=== PATIENT | male | born 1950 | race Caucasian/White ===

== ENCOUNTER 2019-02-23 20:31 | Inpatient (IN) | payer MEDICARE, BC ==
[~2019-02-23] VITALS: Ht 190.5 cm; Wt 96.6 kg
[~2019-02-23 20:31] MED LIST: ALEGRA; ALLEGRA ALLERG180 MG PO; ALPHAGAN P5 ML; ALPHAGAN P5 ML OU; ATROPINE PO; AZOPT10 ML OU; DIPHENOXYLATE PO; GAS-X125 MG; GAS-X125 MG PO; LASIX20 MG PO; LUMIGAN2.5 M1 OP; LUMIGAN2.5 M1 OU; MAALOX ADVANCE1 EACH; NEXIUM40 MG PO; Nystatin PO; PANTOPRAZOLE SO40 MG PO; PEPTO-BISMOL262 M1; PROCHLORPERAZIN10 MG PO; Potassium Chloride PO; SUCRALFATE1 GM PO; TYLENOL PO; TYLENOL325 MG PO; [UNRECOGNIZED DRUG - OTHER]
[2019-02-23] MEDS ORDERED: HEPARIN SOD (PORCINE) 5,000 UNIT/ML VIAL IV ONE (22:30)
[2019-02-23 22:45] LABS: BASOPHILS # (AUTO) 0.1 (0.0-0.1); BASOPHILS % 0.9 % (0.0-1.0); EOSINOPHILS # (AUTO) 0.1 (0.0-0.4); EOSINOPHILS % 1.9 % (0.0-6.0); HEMATOCRIT 50.2 % (38.2-49.6); HEMOGLOBIN 17.5 g/dL (14.0-18.0); LYMPHOCYTES # (AUTO) 1.4 (1.0-3.2); LYMPHOCYTES % 23.6 % (18.0-39.1); MEAN CORPUSCULAR HEMOGLOBIN 31.5 pg (28-32); MEAN CORPUSCULAR HGB CONC 34.9 g/dL (31-35); MEAN CORPUSCULAR VOLUME 90.5 fL (81-99); MONOCYTES # (AUTO) 0.7 (0.2-0.8); MONOCYTES % 11.9 % (4.4-11.3); NEUTROPHILS # (AUTO) 3.5 (2.1-6.9); NEUTROPHILS % 60.8 % (38.7-80.0); PLATELET COUNT 227 x10e3/uL (140-360); RED BLOOD COUNT 5.55 x10e6/uL (4.3-5.7); RED CELL DISTRIBUTION WIDTH 12.6 % (11.7-14.4)
[2019-02-23 22:51] LABS: INR 0.99; PARTIAL THROMBOPLASTIN TIME 27.4 seconds (23.8-35.5); PROTHROMBIN TIME 13.6 seconds (11.9-14.5)
[2019-02-23 22:58] LABS: ALANINE AMINOTRANSFERASE 28 IU/L (0-55); ALBUMIN/GLOBULIN RATIO 1.1 (0.8-2.0); ALKALINE PHOSPHATASE 41 IU/L (40-150); ANION GAP 15.4 mmol/L (8-16); BLOOD UREA NITROGEN 10 mg/dL (7-26); BUN/CREATININE RATIO 9 (6-25); CALCIUM 9.9 mg/dL (8.4-10.2); CARBON DIOXIDE 24 mmol/L (22-29); CHLORIDE 99 mmol/L (98-107); CREATININE, SERUM 1.08 mg/dL (0.72-1.25); EST GLOMERULAR FILTRATION RATE > 60 ML/MIN (60-); GLUCOSE 132 mg/dL (74-118); POTASSIUM 3.4 mmol/L (3.5-5.1); SODIUM 135 mmol/L (136-145)
[2019-02-23] MEDS: [UNRECOGNIZED DRUG - OTHER] IV SCH (23:10)
[2019-02-23] MEDS: HEPARIN IV SCH (23:10)
[2019-02-23] MEDS ORDERED: HEPARIN 25,000U/0.45% NS 250ML 250 ML IV ONE (23:11)
[2019-02-24] VITALS (9 sets, daily range): BP systolic 103–135; BP diastolic 66–79
[2019-02-24] MEDS ORDERED: ONDANSETRON HCL INJ 2MG/ML 2ML 2 MG/ML VIAL IV PRN (00:15)
[2019-02-24] MEDS ORDERED: SODIUM CHLORIDE FLUSH 10 ML SYR INJ PRN (00:15)
[2019-02-24] MEDS ORDERED: HYDROCODONE/APAP 5MG-325MG TAB PO PRN (00:45)
[2019-02-24] MEDS ORDERED: MILK OF MA2400 MG/10 PO (00:48)
[2019-02-24] MEDS ORDERED: IMODIUM2 MG PO (00:48)
[2019-02-24] MEDS ORDERED: ZOFRAN4 MG PO (00:48)
[2019-02-24] MEDS ORDERED: DICYCLOMINE HCL10 MG PO (00:49)
[2019-02-24] MEDS ORDERED: AZELASTINE137 MCG/0. INH (00:50)
[2019-02-24 06:31] LABS: BASOPHILS # (AUTO) 0.1 (0.0-0.1); BASOPHILS % 0.9 % (0.0-1.0); EOSINOPHILS # (AUTO) 0.1 (0.0-0.4); HEMATOCRIT 46.5 % (38.2-49.6); HEMOGLOBIN 15.8 g/dL (14.0-18.0); LYMPHOCYTES # (AUTO) 1.8 (1.0-3.2); LYMPHOCYTES % 30.7 % (18.0-39.1); MEAN CORPUSCULAR HEMOGLOBIN 30.8 pg (28-32); MEAN CORPUSCULAR VOLUME 90.6 fL (81-99); MONOCYTES # (AUTO) 0.7 (0.2-0.8); MONOCYTES % 11.8 % (4.4-11.3); NEUTROPHILS # (AUTO) 3.2 (2.1-6.9); NEUTROPHILS % 53.9 % (38.7-80.0); PLATELET COUNT 212 x10e3/uL (140-360); RED BLOOD COUNT 5.13 x10e6/uL (4.3-5.7); RED CELL DISTRIBUTION WIDTH 12.7 % (11.7-14.4)
[2019-02-24] MEDS ORDERED: DIATRIZOATE MEGL/DIATRIZOA SOD 30 ML BTL PO ONE (06:59)
[2019-02-24 07:19] LABS: ALANINE AMINOTRANSFERASE 26 IU/L (0-55); ALBUMIN 3.8 g/dL (3.5-5.0); ALBUMIN/GLOBULIN RATIO 1.2 (0.8-2.0); ALKALINE PHOSPHATASE 38 IU/L (40-150); ANION GAP 13.4 mmol/L (8-16); BLOOD UREA NITROGEN 9 mg/dL (7-26); BUN/CREATININE RATIO 9 (6-25); CALCIUM 9.3 mg/dL (8.4-10.2); CARBON DIOXIDE 22 mmol/L (22-29); CHLORIDE 99 mmol/L (98-107); CREATININE, SERUM 0.99 mg/dL (0.72-1.25); EST GLOMERULAR FILTRATION RATE > 60 ML/MIN (60-); GLUCOSE 123 mg/dL (74-118); POTASSIUM 3.4 mmol/L (3.5-5.1); SODIUM 131 mmol/L (136-145)
--- NOTE | 2019-02-24 07:37 | History and Physical ---
REASON FOR ADMISSION: The patient is a 69-year-old gentleman, who comes in with right lower extremity pain. HISTORY OF PRESENTING ILLNESS: Mr. Vipin Arreola with a history of colorectal cancer, recently had his 3rd set of chemo and the patient started to have diarrhea, which is intractable. Took some Imodium. The patient's diarrhea did get better. The patient did have some shortness of breath and abdominal pain. However, on the day of admission, the patient noticed that the right ankle and the right thigh was enlarged and increased redness and also swelling and also paresthesias noted. The patient came to the emergency room, was found to have an acute DVT and admitted for the pain. PAST MEDICAL HISTORY: History of hypertension, history of hyperlipidemia, history of colon cancer, history of glaucoma, and history of nasal allergies. PAST SURGICAL HISTORY: History of colon resection by Dr. Mcclure and also chemotherapy as noted above. MEDICATIONS: Azelastine, Lumigan, Alphagan, Azopt, dicyclomine, loperamide as needed, and Zofran 4 mg, and chemotherapy as by Dr. Vanessa. SOCIAL HISTORY: No EtOH. No IV drug abuse. No history of smoking either. FAMILY HISTORY: Positive for diabetes. Positive for hypertension. Positive for hyperlipidemia. ALLERGIES: NO DRUG ALLERGIES. REVIEW OF SYSTEMS: Negative for chest pain. No shortness of breath. No nausea, vomiting, or diarrhea. Positive for abdominal pain. Positive for constipation and diarrhea, the last episode. No diplopia. No blurry vision. PHYSICAL EXAMINATION: VITAL SIGNS: Temperature is 97.2, pulse of 80, respirations of 20, blood pressure is 120/74, and pulse oximetry of 97%. HEENT: Normocephalic, atraumatic. Pupils are reactive to light and accommodation. CVS: S1, S2 normal. Regular rate and rhythm. ABDOMEN: Tender in the right lower quadrant. LUNGS: Clear to auscultation. EXTREMITIES: Positive for increased girth in the thigh and also in the calf on the right lower extremities. LABORATORY DATA: White count 5.81, hemoglobin of 17.5, hematocrit 50.2, no left shift present. Coags; PT, PTT, lupus anticoagulant, and factor VII are pending. Chemistry shows sodium of 135, potassium 3.4, glucose 132, and albumin is normal. IMAGING STUDIES: Lower extremity ultrasound and venous Doppler shows acute DVT in the SFA, popliteal, and superficial veins on the right side. Lower extremity Dopplers were within normal limits. ASSESSMENT: 1. Acute deep vein thrombosis. The patient has been put on heparin protocol. 2. Abdominal pain. We will do a CT of the abdomen in lieu of his colon cancer. PLAN: To continue the patient on heparin base protocol. Continue monitoring his right lower extremity. We will also have Cardiology consult on board. Further recommendation and clinical course and also will depend on the CT scan of the abdomen and pelvis. Joby Carr MD ASJ/MODL /[id number]
--- NOTE | 2019-02-24 10:12 | Diagnostic Imaging Report ---
EXAMINATION: CT of the abdomen and pelvis with contrast. TECHNIQUE: Spiral CT images of the abdomen and pelvis were performed from the lung bases to the lesser trochanters after the intravenous administration of 100 cc Isovue-370. Coronal and sagittal reformatted images were obtained. COMPARISON: 01/09/2016 CLINICAL HISTORY:Abdominal pain, history of colorectal cancer, history of DVT DISCUSSION: ABDOMEN/PELVIS: LOWER THORAX:Filling defect in the right lower lobe pulmonary artery partially visualized (series 2 image 2). Additional filling defects in segmental branches of the left lower lobe pulmonary artery, also partially visualized (series 2 image 5). Subsegmental atelectasis in the dependent lower lobes. 5 mm juxtapleural right middle lobe nodule (series 2 image 11). HEPATOBILIARY: No focal hepatic lesions. No intra-or extrahepatic biliary ductal dilation. The gallbladder has been removed. Metallic clips in the gallbladder fossa. SPLEEN: No splenomegaly. PANCREAS: No focal masses or ductal dilatation. ADRENALS: No adrenal nodules. KIDNEYS/URETERS: No hydronephrosis, stones, or solid mass lesions. PELVIC ORGANS/BLADDER: The urinary bladder is unremarkable. Mild prostatomegaly with mass effect on the bladder base. PERITONEUM/RETROPERITONEUM: No free air or fluid. LYMPH NODES: 2.5 x 2.7 cm enlarged right pelvic sidewall/internal iliac chain lymph node seen on series 2 image 75, similar in size to that described on 01/09/2016. No retroperitoneal or mesenteric lymphadenopathy. VESSELS: Atherosclerotic calcification of the abdominal aorta without aneurysmal dilatation. Early origin of the right hepatic artery from the celiac axis with otherwise conventional hepatic arterial anatomy. 2 left and single right renal artery. Portal vein, splenic vein, and central superior mesenteric vein are patent. Increased caliber and adjacent fat stranding along the right common femoral and external iliac vein in keeping with previously diagnosed deep venous thrombosis. GI TRACT: Radiopaque suture material along the rectum. Descending and sigmoid colon are partially collapsed with mild wall thickening, mucosal enhancement and adjacent mesocolic inflammation. Ascending colon shows no distention or wall thickening. The appendix is not definitively identified. No small bowel dilatation to suggest obstruction. Stomach is collapsed with prominent rugal folds. BONES AND SOFT TISSUE: No osseous destructive lesions. No soft tissue abnormalities. IMPRESSION: Partially visualized bilateral lower lobe pulmonary emboli with findings of right common femoral and external iliac deep venous thrombosis. Per EMR patient is undergoing treatment with therapeutic systemic heparinization. Findings suggestive of infectious or inflammatory colitis involving the descending and sigmoid colon. No perforation or drainable fluid collection. Enlarged right pelvic sidewall lymph node is without significant interval change in size relative to 01/09/2016, though remains concerning for metastatic disease in this patient with known history of colorectal cancer. PET-CT may be of benefit to assess for metabolic activity/viability of this lymph node. 5 mm right middle lobe pulmonary nodule is indeterminate and should be followed closely on subsequent cross-sectional imaging examinations. Findings were discussed by telephone with the patient's nurse Ms. Chester at 10:05 AM 02/24/2019. Signed by: Dr. Maycol Valdez M.D. on 02/24/2019 10:09 AM
[2019-02-24] MEDS ORDERED: DICYCLOMINE HCL 10 MG CAP PO PRN (12:45)
[2019-02-24] MEDS ORDERED: NON-FORMULARY MEDICATION (Ondansetron Hcl* (Zofran*) 8 MG) PO PRN (12:45)
[2019-02-24] MEDS: LOPERAMIDE HCL 2 MG CAP PO PRN ×2 (13:10→21:17)
[2019-02-24] MEDS ORDERED: IOPAMIDOL 370 MG/ML 200 ML INFUS..BTL INJ ONE (15:00)
[2019-02-24] MEDS ORDERED: SODIUM CHLORIDE 0.9% 50ML 50 ML ONE (15:00)
[2019-02-24] MEDS: BRIMONIDINE TARTRATE 0.15% OPTH DRPS 10ML BTL OP SCH (16:59)
[2019-02-24] MEDS: BRINZOLAMIDE 1% OPTH SUSP 10 ML BTL OU SCH (16:59)
[2019-02-24] MEDS: HEPARIN IV SCH (18:17)
[2019-02-24] MEDS: [UNRECOGNIZED DRUG - OTHER] IV SCH (18:17)
--- NOTE | 2019-02-24 19:11 | Consultation ---
DATE OF CONSULTATION: Cardiology Consultation HISTORY OF PRESENT ILLNESS: This is a 69-year-old man with a history of colorectal cancer, currently undergoing chemotherapy, who presented to the emergency department with right lower extremity pain, swelling, redness, and paresthesias in addition to some shortness of breath and abdominal pain. The patient was noted to have extensive deep venous thrombosis. We were consulted. He has no history of thromboembolism in the past. PAST MEDICAL HISTORY: As stated above in the HPI. PAST SURGICAL HISTORY: Colon resection. FAMILY HISTORY: No premature coronary artery disease or sudden cardiac , no history of deep venous thrombosis. MEDICATIONS: See medications reconciliation form. ALLERGIES: NO KNOWN DRUG ALLERGIES. SOCIAL HISTORY: No illicit drug, alcohol, or tobacco use. OBJECTIVE: VITAL SIGNS: Temperature is 95.9, heart rate is 87, respirations are 22, blood pressure is 120/72, oxygen saturation 96% on room air. GENERAL: Well-appearing, well-built, no apparent distress. CARDIOVASCULAR: Regular rate and rhythm. LUNGS: Clear to auscultation. ABDOMEN: Soft, nontender, and nondistended. EXTREMITIES: He has right lower extremity erythema with swelling. VASCULAR: 2+ pulses. NEUROLOGIC: No focal deficits noted. LABORATORY DATA: Hemoglobin 15.8, platelets 212. INR 0.99. Creatinine 0.99. Right lower extremity venous Doppler showed extensive deep venous thrombosis in the common femoral, superficial femoral, popliteal, and posterior tibial vessels. CT of the abdomen and pelvis showed bilateral lower lobe pulmonary emboli with common femoral and external iliac deep venous thrombosis. IMPRESSION: 1. Pulmonary embolism. 2. Deep venous thrombosis. 3. Colon cancer. 4. Hypokalemia. 5. Hyponatremia. RECOMMENDATIONS: The patient would benefit from venography and possible thrombolysis and/or mechanical thrombectomy given the extensive thrombus burden. He also has evidence of pulmonary emboli. Continue heparin for anticoagulation for now. We will need to discuss with Oncology regarding anticoagulation on discharge. Given his history of colon cancer, Lovenox q.12 hours seems reasonable. We will continue to follow along with you. Kevin Orlando DO BM/MODL /[id number]
[2019-02-24] MEDS: BIMATOPROST(OPTH) 2.5 ML BOTTLE OP SCH (21:01)
[2019-02-25] VITALS (27 sets, daily range): BP systolic 96–171; BP diastolic 57–79
[2019-02-25 06:58] LABS: BASOPHILS % 0.8 % (0.0-1.0); EOSINOPHILS # (AUTO) 0.2 (0.0-0.4); EOSINOPHILS % 3.6 % (0.0-6.0); HEMATOCRIT 42.5 % (38.2-49.6); LYMPHOCYTES # (AUTO) 1.5 (1.0-3.2); MEAN CORPUSCULAR HEMOGLOBIN 31.8 pg (28-32); MEAN CORPUSCULAR HGB CONC 35.3 g/dL (31-35); MEAN CORPUSCULAR VOLUME 90.2 fL (81-99); MONOCYTES # (AUTO) 0.7 (0.2-0.8); MONOCYTES % 14.7 % (4.4-11.3); NEUTROPHILS # (AUTO) 2.5 (2.1-6.9); NEUTROPHILS % 49.3 % (38.7-80.0); PLATELET COUNT 187 x10e3/uL (140-360); RED BLOOD COUNT 4.71 x10e6/uL (4.3-5.7)
[2019-02-25 07:09] LABS: ANION GAP 10.4 mmol/L (8-16); BLOOD UREA NITROGEN 8 mg/dL (7-26); BUN/CREATININE RATIO 8 (6-25); CALCIUM 8.8 mg/dL (8.4-10.2); CARBON DIOXIDE 27 mmol/L (22-29); CHLORIDE 100 mmol/L (98-107); CREATININE, SERUM 0.95 mg/dL (0.72-1.25); EST GLOMERULAR FILTRATION RATE > 60 ML/MIN (60-); GLUCOSE 97 mg/dL (74-118); POTASSIUM 3.4 mmol/L (3.5-5.1); SODIUM 134 mmol/L (136-145)
[2019-02-25] MEDS: BRINZOLAMIDE 1% OPTH SUSP 10 ML BTL OU SCH ×2 (07:28→17:43)
[2019-02-25] MEDS: BRIMONIDINE TARTRATE 0.15% OPTH DRPS 10ML BTL OP SCH ×2 (07:28→17:43)
[2019-02-25] MEDS: ONDANSETRON HCL 4 MG ORAL DISINTEGRATING TAB PO PRN ×2 (08:05→08:06)
[2019-02-25] MEDS ORDERED: FENTANYL CITRATE/PF 100MCG/2 ML INJ ONE (09:00)
[2019-02-25] MEDS ORDERED: MIDAZOLAM HCL 2 MG/2 ML VIAL ONE ×2 (09:00→09:38)
[2019-02-25] MEDS ORDERED: HEPARIN SOD/SOD CHLORIDE 2,000 ML ONE (09:00)
[2019-02-25] MEDS ORDERED: LIDOCAINE HCL 2% LOCAL 20 ML VIAL ONE (09:00)
[2019-02-25] MEDS ORDERED: IOPAMIDOL 300MG/ML 100 ML INFUS..BTL IV ONE (09:01)
[2019-02-25] MEDS ORDERED: SODIUM CHLORIDE 0.9% 1000ML 1,000 ML ONE (09:01)
[2019-02-25] MEDS ORDERED: HEPARIN 25,000U/0.45% NS 250ML 250 ML IV ONE (09:49)
[2019-02-25] MEDS ORDERED: ALTEPLASE RECOMBINANT 2 MG/2 ML VIAL ONE (09:49)
[2019-02-25] MEDS ORDERED: ALTEPLASE 50 MG/VIAL (29 MILLION IU) IV ONE (10:00)
[2019-02-25] MEDS ORDERED: HEPARIN 25,000 UNIT 25,000 UNIT in DEXTROSE 5% 250ML 250 ML IV SCH (10:00)
--- NOTE | 2019-02-25 10:04 | Progress Note ---
DATE: SUBJECTIVE: The patient is here for an acute DVT of the right lower extremity. The patient's CT scan was done yesterday. The imaging CT showed partialized bilateral lower lobe pulmonary emboli with findings of right common femoral and external iliac deep vein thrombosis. Findings suggestive of infectious inflammatory colitis involving the descending and sigmoid colon. No perforation or drainable fluid located. A 5 mm right middle lobe pulmonary nodule. The patient is currently asymptomatic. No fever noticed. The patient's abdominal pain has decreased. OBJECTIVE: VITAL SIGNS: Temperature is 96.4, pulse of 74, respirations 16, blood pressure is 108/76, and pulse oximetry of 97%. HEENT: Normocephalic, atraumatic. Pupils reactive to light and accommodation. CVS: S1, S2 normal. Regular rate and rhythm. LUNGS: Decreased air entry. ABDOMEN: Nontender, nondistended. EXTREMITIES: Right lower extremity with swelling and erythema, which have decreased and positive for increased edema. LABORATORY VALUES: White count is 5.86, hemoglobin of 15.3, hematocrit of 46.5. Chemistries show sodium 131, potassium is 3.4, glucose is 123. Coags to be continued with heparin drip. ASSESSMENT: 1. Acute deep vein thrombosis, thrombus load is very large. The patient will need a thrombectomy and possible IVC filter. Dr. Kevin Orlando is going to do it today. 2. The patient also with CT showing colitis, probably inflammatory secondary to the fact that the CBC is normal, white count is normal. We will hold off on antibiotics at this time and patient's abdominal pain is much better. 3. History of colon cancer with metastasis, lung METs seen. The patient's oncologist, Dr. Vanessa is aware of this. 4. Will need warfarin started after thrombectomy and bridge to heparin to warfarin. White count will be done again today. The patient also has lupus anticoagulant and factor VII pending. Further recommendation per clinical course. We will continue to monitor the patient. The patient has been briefed about risks and benefits of thrombectomy and also IVC filter. MD THOMAS Aguirre/PLACIDOL /[id number]
[2019-02-25] MEDS ORDERED: [UNRECOGNIZED DRUG - OTHER] IV SCH (10:15)
[2019-02-25] MEDS ORDERED: HEPARIN IV SCH (10:15)
[2019-02-25] MEDS ORDERED: POTASSIUM CHLORIDE 20 MEQ TAB CR PO SCH (11:00)
--- NOTE | 2019-02-25 12:59 | Progress Note ---
DATE: Cardiology Progress Note SUBJECTIVE: The patient reports persistent right lower extremity swelling. OBJECTIVE: VITAL SIGNS: Temperature is 96.6, heart rate is 95, respirations 18, blood pressure is 131/79, ox saturation 98% on room air. GENERAL: He is well appearing, well built, no apparent distress. CARDIOVASCULAR: Regular rate and rhythm. LUNGS: Clear to auscultation. ABDOMEN: Soft, nontender, nondistended. EXTREMITIES: Right lower extremity swelling. NEUROLOGIC: No focal deficits noted. CARDIOVASCULAR MEDICATIONS: Reviewed. LABORATORY DATA: Reviewed. TELEMETRY: Monitoring revealed normal sinus rhythm with premature atrial complexes. IMPRESSION: 1. Deep venous thrombosis. 2. Pulmonary embolism. 3. Colon cancer. 4. Hypokalemia. RECOMMENDATIONS: The patient underwent IVC filter placement with venography showing extensive thrombus burden throughout the right lower extremity. A Mauro thrombolysis catheter was placed and we will infuse, also placed at 1 mg/hour overnight. He will be brought back to the cardiac catheterization laboratory for repeat angiography with possible further intervention. Kevin Orlando DO BM/MODL /[id number]
[2019-02-25] MEDS: ALTEPLASE RECOMBINANT 8 MG in DEXTROSE 5% 250ML 250 ML IV PRN (18:21)
--- NOTE | 2019-02-25 20:11 | Operative Report ---
DATE OF PROCEDURE: SURGEON: Kevin Orlando DO PROCEDURES PERFORMED: 1. Conscious sedation, 35 minutes. 2. Ultrasound-guided left femoral venous access. 3. Catheter placement in the inferior vena cava. 4. Inferior vena cava angiography. 5. Inferior vena caval filter placement. 6. Second order venography. 7. Unilateral venogram. 8. Transcatheter lysis, catheter placement with infusion of alteplase. PREPROCEDURE DIAGNOSIS: Deep venous thrombosis POSTPROCEDURE DIAGNOSIS: Deep venous thrombosis ESTIMATED BLOOD LOSS: Less than 20 mL. SPECIMENS REMOVED: None. PROCEDURE IN DETAIL: After informed consent was obtained, the patient was brought to the cardiac catheterization laboratory in a fasting and nonsedated state. Bilateral groins were prepped and draped in the usual sterile fashion. A 2% lidocaine was instilled over the left anterior groin for local anesthesia. Using ultrasound guidance, the left common femoral artery was accessed via a modified Seldinger technique and an 8.4-[place] IVC filter sheath was placed in the infrarenal position. Digital subtraction angiography was performed to delineate the renal veins. Next, an IVC filter was deployed in the usual manner. Next, this was exchanged out for a 9-[place] [employer] sheath. Next, using an IM catheter, the iliac veins were crossed up and over with placement of the [employer] wire into the distal popliteal vein. The catheter was tracked out distally and placed in second order position. Venography revealed significant thrombus burden throughout the left lower extremity extending into the iliac system. Next, I placed a 40 cm working Mauro catheter with infusion of alteplase. Everything was secured in place and the patient was transported back to the ICU in stable condition. Kevin Orlando DO BM/MODL /[id number]
[2019-02-25] MEDS: METRONIDAZOLE 500MG/NS 100ML 100 ML IV SCH (20:17)
[2019-02-25] MEDS: BIMATOPROST(OPTH) 2.5 ML BOTTLE OP SCH (21:50)
[2019-02-26] VITALS (26 sets, daily range): BP systolic 112–159; BP diastolic 68–113
[2019-02-26] MEDS ORDERED: DEXTROSE 5% 250ML 0 ML IV ONE (01:46)
[2019-02-26] MEDS ORDERED: ALTEPLASE RECOMBINANT 2 MG/2 ML VIAL ONE (01:47)
[2019-02-26] MEDS: ALTEPLASE RECOMBINANT 8 MG in DEXTROSE 5% 250ML 250 ML IV PRN (02:06)
[2019-02-26] MEDS: METRONIDAZOLE 500MG/NS 100ML 100 ML IV SCH ×3 (03:50→19:36)
[2019-02-26 05:16] LABS: BASOPHILS % 0.7 % (0.0-1.0); EOSINOPHILS # (AUTO) 0.1 (0.0-0.4); EOSINOPHILS % 1.8 % (0.0-6.0); HEMOGLOBIN 14.3 g/dL (14.0-18.0); LYMPHOCYTES # (AUTO) 1.4 (1.0-3.2); LYMPHOCYTES % 23.1 % (18.0-39.1); MEAN CORPUSCULAR HEMOGLOBIN 31.6 pg (28-32); MEAN CORPUSCULAR HGB CONC 34.9 g/dL (31-35); MEAN CORPUSCULAR VOLUME 90.7 fL (81-99); MONOCYTES # (AUTO) 0.9 (0.2-0.8); MONOCYTES % 15.2 % (4.4-11.3); NEUTROPHILS # (AUTO) 3.5 (2.1-6.9); NEUTROPHILS % 58.2 % (38.7-80.0); PLATELET COUNT 155 x10e3/uL (140-360); RED BLOOD COUNT 4.52 x10e6/uL (4.3-5.7)
[2019-02-26 05:37] LABS: ANION GAP 11.5 mmol/L (8-16); BLOOD UREA NITROGEN 8 mg/dL (7-26); BUN/CREATININE RATIO 10 (6-25); CALCIUM 8.3 mg/dL (8.4-10.2); CARBON DIOXIDE 22 mmol/L (22-29); CHLORIDE 104 mmol/L (98-107); CREATININE, SERUM 0.84 mg/dL (0.72-1.25); EST GLOMERULAR FILTRATION RATE > 60 ML/MIN (60-); GLUCOSE 103 mg/dL (74-118); POTASSIUM 3.5 mmol/L (3.5-5.1); SODIUM 134 mmol/L (136-145)
--- NOTE | 2019-02-26 06:53 | Progress Note ---
DATE: SUBJECTIVE: The patient is in ICU 193 and here for DVT, status post catheter insertion. The patient is currently complaining of back pain and lying on his back. The patient had a procedure yesterday, had a catheter placed in for tPA and heparin, currently being infused for thrombolysis. OBJECTIVE: VITAL SIGNS: Temperature is 97.3, pulse of 77, respirations of 18, blood pressure is 126/68, pulse oximetry of 99%. Seen by Dr. Mcclure yesterday and started on Flagyl for colitis. HEENT: Normocephalic, atraumatic. Pupils are reactive to light and accommodation. CVS: S1, S2 normal. Regular rate and rhythm. ABDOMEN: Nontender, nondistended. EXTREMITIES: Catheterization catheters in place and pulses are felt. Edema on the right side positive, but decreased in girth. LABORATORY VALUES: White count of 6.06, hemoglobin of 14.3, hematocrit is 41. Chemistries, sodium 134, potassium 3.5, BUN 8, creatinine 0.84. Coags within normal limits. Stool occult was positive. ASSESSMENT: Acute deep vein thrombosis. The patient was taken back yesterday for IV catheter infusion of tPA and heparin. Continues to do the same. IVC filter was placed yesterday. The patient's CT showed colitis, seen by Dr. Mcclure, started on Flagyl. History of colon cancer with metastasis. We will continue to monitor the patient and for history of pulmonary embolism, will need a dedicated CT of the lung. We will try to reduce the thrombus load and do the CT on a later date. Currently, continue with anticoagulation. The patient will be taken down back to the sleep lab technologist today for a 2nd procedure. Further recommendation per clinical course. The patient is very stable at this time, continued to monitor the patient in the ICU. MD NEVA AguirreJ/MODL /[id number]
[2019-02-26] MEDS: BRIMONIDINE TARTRATE 0.15% OPTH DRPS 10ML BTL OP SCH ×2 (08:46→17:14)
[2019-02-26] MEDS: BRINZOLAMIDE 1% OPTH SUSP 10 ML BTL OU SCH ×2 (08:46→17:14)
[2019-02-26] MEDS ORDERED: ALTEPLASE RECOMBINANT 8 MG in DEXTROSE 5% 250ML 250 ML IV PRN (10:30)
[2019-02-26] MEDS ORDERED: MIDAZOLAM HCL 2 MG/2 ML VIAL ONE (14:24)
[2019-02-26] MEDS ORDERED: LIDOCAINE HCL 2% LOCAL 20 ML VIAL ONE (14:24)
[2019-02-26] MEDS ORDERED: HEPARIN SOD/SOD CHLORIDE 2,000 ML ONE (14:24)
[2019-02-26] MEDS ORDERED: IOPAMIDOL 300MG/ML 100 ML INFUS..BTL IV ONE (14:24)
[2019-02-26] MEDS ORDERED: SODIUM CHLORIDE 0.9% 1000ML 1,000 ML ONE ×2 (14:24→15:38)
[2019-02-26] MEDS ORDERED: FENTANYL CITRATE/PF 100MCG/2 ML INJ ONE (14:24)
[2019-02-26] MEDS ORDERED: ONDANSETRON HCL INJ 2MG/ML 2ML 2 MG/ML VIAL ONE (15:24)
[2019-02-26] MEDS ORDERED: HEPARIN SOD (PORCINE) 1000 UNIT/ML 30ML ONE (15:38)
[2019-02-26] MEDS ORDERED: PROMETHAZINE HCL (IM) 25 MG/ML VIAL ONE (15:48)
[2019-02-26] MEDS ORDERED: HEPARIN 25,000 UNIT 1,500 UNIT in DEXTROSE 5% 250ML 250 ML IV SCH ×2 (17:00→20:30)
--- NOTE | 2019-02-26 20:20 | Progress Note ---
DATE: Cardiology Progress Note SUBJECTIVE: The patient is feeling better, improvement of symptoms in his right lower extremity. OBJECTIVE: VITAL SIGNS: Temperature is 98, heart rate is 66, respirations are 14, blood pressure is 130/78, and oxygen saturation 98% on room air. GENERAL: Well appearing, well built, no apparent distress. CARDIOVASCULAR: Regular rate and rhythm. LUNGS: Clear to auscultation. ABDOMEN: Soft, nontender, nondistended. EXTREMITIES: Right extremity edema. NEUROLOGIC: No focal deficits noted. LABORATORY DATA: Reviewed. CARDIOVASCULAR MEDICATIONS: Reviewed. IMPRESSION: 1. Deep venous thrombosis. 2. Pulmonary embolism. 3. Colon cancer. 4. History of hypokalemia. RECOMMENDATIONS: The patient underwent IVC filter placement 2 days ago. Venography at that time revealed significant thrombus burden. He underwent thrombolysis for 24 hours. Today, he received Angiojet mechanical thrombectomy with excellent results. The patient may resume heparin infusion and start on warfarin per primary team. We will continue to follow along closely. Kevin Orlando DO BM/MODL /[id number]
[2019-02-26] MEDS: BIMATOPROST(OPTH) 2.5 ML BOTTLE OP SCH (20:40)
[2019-02-26] MEDS: ONDANSETRON HCL 4 MG ORAL DISINTEGRATING TAB PO PRN (20:40)
[2019-02-26] MEDS: LOPERAMIDE HCL 2 MG CAP PO PRN (20:40)
[2019-02-27] VITALS (29 sets, daily range): BP systolic 89–149; BP diastolic 52–117
[2019-02-27] MEDS: METOPROLOL TARTRATE INJ 1 MG/ML VIAL IV PRN ×2 (03:10→08:04)
[2019-02-27] MEDS ORDERED: METOPROLOL TARTRATE INJ 1 MG/ML VIAL ONE (03:11)
[2019-02-27] MEDS ORDERED: METOPROLOL TARTRATE 25 MG TAB PO SCH (03:15)
[2019-02-27] MEDS: METRONIDAZOLE 500MG/NS 100ML 100 ML IV SCH ×3 (03:18→19:22)
[2019-02-27 05:14] LABS: BASOPHILS # (AUTO) 0.1 (0.0-0.1); BASOPHILS % 0.6 % (0.0-1.0); EOSINOPHILS # (AUTO) 0.1 (0.0-0.4); EOSINOPHILS % 1.2 % (0.0-6.0); HEMATOCRIT 42.5 % (38.2-49.6); HEMOGLOBIN 14.4 g/dL (14.0-18.0); LYMPHOCYTES # (AUTO) 1.5 (1.0-3.2); LYMPHOCYTES % 17.4 % (18.0-39.1); MEAN CORPUSCULAR HEMOGLOBIN 31.3 pg (28-32); MEAN CORPUSCULAR HGB CONC 33.9 g/dL (31-35); MEAN CORPUSCULAR VOLUME 92.4 fL (81-99); MONOCYTES # (AUTO) 1.6 (0.2-0.8); MONOCYTES % 18.5 % (4.4-11.3); NEUTROPHILS # (AUTO) 5.3 (2.1-6.9); NEUTROPHILS % 60.5 % (38.7-80.0); PLATELET COUNT 150 x10e3/uL (140-360); RED CELL DISTRIBUTION WIDTH 13.2 % (11.7-14.4)
[2019-02-27 05:33] LABS: ALANINE AMINOTRANSFERASE 29 IU/L (0-55); ALBUMIN 3.1 g/dL (3.5-5.0); ALKALINE PHOSPHATASE 33 IU/L (40-150); ANION GAP 13.5 mmol/L (8-16); BLOOD UREA NITROGEN 13 mg/dL (7-26); BUN/CREATININE RATIO 11 (6-25); CALCIUM 8.4 mg/dL (8.4-10.2); CARBON DIOXIDE 20 mmol/L (22-29); CHLORIDE 106 mmol/L (98-107); CREATININE, SERUM 1.16 mg/dL (0.72-1.25); EST GLOMERULAR FILTRATION RATE > 60 ML/MIN (60-); GLUCOSE 114 mg/dL (74-118); POTASSIUM 3.5 mmol/L (3.5-5.1); SODIUM 136 mmol/L (136-145)
[2019-02-27] MEDS: METOPROLOL TARTRATE 25 MG TAB PO PRN (07:34)
[2019-02-27] MEDS: LOPERAMIDE HCL 2 MG CAP PO PRN ×2 (07:35→16:24)
[2019-02-27] MEDS: ONDANSETRON HCL 4 MG ORAL DISINTEGRATING TAB PO PRN (07:45)
[2019-02-27] MEDS: BRINZOLAMIDE 1% OPTH SUSP 10 ML BTL OU SCH ×2 (09:03→16:24)
[2019-02-27] MEDS: BRIMONIDINE TARTRATE 0.15% OPTH DRPS 10ML BTL OP SCH ×2 (09:03→16:24)
--- NOTE | 2019-02-27 09:33 | Progress Note ---
DATE: SUBJECTIVE: This is a 69-year-old male, who came in with acute DVT. The patient is status post IVC filter and also status post thrombectomy. The patient is continuously getting heparin and tPA. The patient complained of diarrhea this a.m., and also had an episode of atrial fibrillation with rapid ventricular response. The patient is given IV metoprolol 5 mg and also metoprolol 25 mg q.6 hours for rate control. The patient is converted back to normal sinus rhythm. Currently still complains of some reflux esophagitis and some reflux on eating. OBJECTIVE: VITAL SIGNS: , respirations of 21, and blood pressure is 130/82. HEENT: Normocephalic, atraumatic. Pupils are reactive to light and accommodation. CVS: S1 and S2, regular. Rate is controlled at this time. ABDOMEN: Tender in the epigastrium in the left lower quadrant. EXTREMITIES: No clubbing. No cyanosis. No edema. ASSESSMENT: 1. Deep vein thrombosis. 2. Pulmonary embolism. 3. History of colon cancer. 4. Colitis. 5. History of hypertension. 6. Atrial fibrillation with rapid ventricular response. PLAN: The patient underwent IVC filter, status post venograph and status post thrombolysis. The patient is doing well, continued on heparin. We will start the patient on warfarin 5 mg. We will continue to monitor his INR daily. The patient also will get C difficile checked for his diarrhea. Further recommendation per clinical course. We will continue to monitor the patient and continue monitoring his labs. LABORATORY VALUES: From today, lymphocyte count is 17.4, monocyte was 18.5, rest is normal. White count is 8.68. Chemistries, 136 sodium, potassium of 3.5, and magnesium of 2.3. ALT was 29, AST was 74. PLAN: Again, start the patient on warfarin today. Further recommendation per clinical course. MD THOMAS Aguirre/PLACIDOL /[id number]
[2019-02-27] MEDS ORDERED: HEPARIN 25,000 UNIT DRIP IV ONE (11:12)
[2019-02-27 12:38] LABS: EOSINOPHILS % (MANUAL) 1 % (0-7); LYMPHOCYTES % (MANUAL) 16 % (19-48); MONOCYTES % (MANUAL) 18 % (3.4-9.0); NEUTROPHILS % (MANUAL) 60 % (40-74); PLATELET ESTIMATE ADEQUATE; PLATELET MORPHOLOGY COMMENT NORMAL; RBC MORPHOLOGY COMMENT NORMAL
[2019-02-27] MEDS ORDERED: WARFARIN SOD 5 MG TAB PO SCH (17:00)
--- NOTE | 2019-02-27 18:05 | Progress Note ---
DATE: 02/27/2019 Cardiology Progress Note SUBJECTIVE: No major events overnight. OBJECTIVE: VITAL SIGNS: Temperature afebrile, pulse 77, respiratory rate 22, blood pressure 115/59, and saturating 100% on room air. GENERAL: Well developed, well nourished, no acute distress. CARDIOVASCULAR: Irregular rate and rhythm. No murmurs, rubs, or gallops. LUNGS: Clear to auscultation bilaterally. ABDOMEN: Soft, nontender, and nondistended. EXTREMITIES: No edema of right lower extremity. Warm and well perfused. 2+ pedal pulses. NEURO AND PSYCH: Alert and oriented to person, place, and time. Normal affect. LABORATORY DATA: Reviewed. CARDIOVASCULAR MEDICATIONS: Reviewed. ASSESSMENT AND PLAN: 1. Deep venous thrombosis. 2. Pulmonary embolism. 3. Atrial fibrillation with rapid ventricular response. 4. Colon cancer. 5. History of hypokalemia. RECOMMENDATIONS: The patient underwent IVC filter placement, overnight thrombolytics followed by AngioJet mechanical thrombectomy of his extensive right lower extremity DVT yesterday. He is doing very well post procedure. The edema has now resolved and the patient feels much better in his right lower extremity. I had a discussion with the patient regarding long-term anticoagulation given that he has active cancer. The best option would be subcu Lovenox twice a day. The patient is hesitant to give himself shots, but is willing to try. We will discontinue heparin and start Lovenox tonight 1 mg/kg q.12 hours. If he is able to tolerate Lovenox, he will be discharged on long-term b.i.d. Lovenox. If he is not able to tolerate Lovenox, we will continue bridging to warfarin. Thank you for this consult. We will continue to follow. MD SUHAIL Smith/CATIA /[id number]
[2019-02-27] MEDS: ENOXAPARIN SODIUM INJ 100 MG/ML SYR SC SCH (21:00)
[2019-02-27] MEDS: BIMATOPROST(OPTH) 2.5 ML BOTTLE OP SCH (21:00)
[2019-02-28] VITALS (24 sets, daily range): BP systolic 88–147; BP diastolic 51–105
[2019-02-28] MEDS: METRONIDAZOLE 500MG/NS 100ML 100 ML IV SCH ×3 (02:53→17:40)
[2019-02-28 05:11] LABS: BASOPHILS # (AUTO) 0.1 (0.0-0.1); EOSINOPHILS # (AUTO) 0.3 (0.0-0.4); EOSINOPHILS % 3.6 % (0.0-6.0); HEMATOCRIT 41.5 % (38.2-49.6); HEMOGLOBIN 14.1 g/dL (14.0-18.0); LYMPHOCYTES # (AUTO) 1.9 (1.0-3.2); LYMPHOCYTES % 24.6 % (18.0-39.1); MEAN CORPUSCULAR HEMOGLOBIN 31.2 pg (28-32); MEAN CORPUSCULAR VOLUME 91.8 fL (81-99); MONOCYTES # (AUTO) 1.2 (0.2-0.8); MONOCYTES % 15.5 % (4.4-11.3); NEUTROPHILS % 51.8 % (38.7-80.0); PLATELET COUNT 154 x10e3/uL (140-360); RED BLOOD COUNT 4.52 x10e6/uL (4.3-5.7); RED CELL DISTRIBUTION WIDTH 13.4 % (11.7-14.4)
[2019-02-28 05:23] LABS: INR 1.08; PROTHROMBIN TIME 14.5 seconds (11.9-14.5)
[2019-02-28 05:29] LABS: BLOOD UREA NITROGEN 13 mg/dL (7-26); BUN/CREATININE RATIO 12 (6-25); CALCIUM 8.3 mg/dL (8.4-10.2); CARBON DIOXIDE 20 mmol/L (22-29); CHLORIDE 106 mmol/L (98-107); CREATININE, SERUM 1.13 mg/dL (0.72-1.25); EST GLOMERULAR FILTRATION RATE > 60 ML/MIN (60-); GLUCOSE 100 mg/dL (74-118); SODIUM 136 mmol/L (136-145)
[2019-02-28] MEDS: METOPROLOL TARTRATE 25 MG TAB PO PRN ×2 (05:32→16:42)
[2019-02-28] MEDS ORDERED: POTASSIUM CHLORIDE 20 MEQ TAB CR PO STA (05:57)
[2019-02-28] MEDS: LOPERAMIDE HCL 2 MG CAP PO PRN (06:40)
[2019-02-28 07:24] LABS: BAND NEUTROPHILS % (MANUAL) 2 %; EOSINOPHILS % (MANUAL) 4 % (0-7); LYMPHOCYTES % (MANUAL) 16 % (19-48); METAMYELOCYTES % (MANUAL) 4 % (0-0); MONOCYTES % (MANUAL) 16 % (3.4-9.0); NEUTROPHILS % (MANUAL) 58 % (40-74)
[2019-02-28] MEDS: BRINZOLAMIDE 1% OPTH SUSP 10 ML BTL OU SCH ×2 (08:03→16:01)
[2019-02-28] MEDS: BRIMONIDINE TARTRATE 0.15% OPTH DRPS 10ML BTL OP SCH ×2 (08:03→16:01)
[2019-02-28] MEDS: ENOXAPARIN SODIUM INJ 100 MG/ML SYR SC SCH (08:41)
--- NOTE | 2019-02-28 09:02 | Progress Note ---
DATE: SUBJECTIVE: The patient is in ICU 193. Patient is status post IVC filter placement, thrombolysis and also mechanical thrombectomy for his extensive DVT. The patient is currently asymptomatic. Abdominal pain is better. He did have one episode of diarrhea yesterday. The patient is currently alert and oriented x3, and sitting by the side of the bed. OBJECTIVE: VITAL SIGNS: Temperature is 97.4, pulse is 75, respirations of 18, blood pressure is 112/60, pulse oximetry of 96%. HEENT: Normocephalic, atraumatic. Pupils are reactive to light and accommodation. CVS: S1-S2 irregular. ABDOMEN: Nontender, nondistended. Left groin with little hematoma at the catheterization place. EXTREMITIES: No clubbing, no cyanosis, no edema. LABORATORY VALUES: Today's white count is 7.68, hemoglobin of 14.1, hematocrit 41.5. Chemistry; sodium 136, potassium is 3, BUN 13, creatinine of 1.13, calcium is 8.3. Coags, all within normal limits. MEDICATIONS: The patient is on metoprolol 25 q.6 hours, Flagyl IV q.6, patient is on Lovenox 90 mg q.12 hours. The patient is on his glaucoma medications and also on hydrocodone as needed for pain control. The patient is given 2 doses of 40 mEq of potassium today. ASSESSMENT: 1. Deep vein thrombosis. 2. Pulmonary embolism. 3. Atrial fibrillation with rapid ventricular response. 4. History of colon cancer. 5. History of hypertension. 6. Hyperkalemia. PLAN: To continue with beta-blockade. The patient is on warfarin. Continue to monitor the PT/INR on daily basis, patient is on 5 mg. He is on Lovenox 90 mg bridge to warfarin. Pulmonary embolism and atrial fibrillation. Continue monitoring the patient's rhythm and colon cancer. We will have to postpone the chemotherapy at this time. Further recommendation per clinical course. We will continue to monitor the patient along with consultants. MD THOMAS Aguirre/MODL /[id number]
[2019-02-28] MEDS ORDERED: ARTIFICIAL TEARS (OPTH) 15 ML BTL OU PRN (13:15)
[2019-02-28] MEDS ORDERED: POTASSIUM CHLORIDE 20 MEQ TAB CR PO NR (17:00)
[2019-02-28] MEDS: HEPARIN 25,000 UNIT/D5W 250ML 250 ML IV SCH (17:30)
[2019-02-28] MEDS: WARFARIN SOD 5 MG TAB PO SCH (17:40)
--- NOTE | 2019-02-28 17:54 | Progress Note ---
DATE: 02/28/2019 Cardiology Progress Note SUBJECTIVE: No major events overnight. Having paroxysmal atrial fibrillation still. The patient tried getting Lovenox, had two doses, but feels very uncomfortable with giving himself a shot and does not think he can do it at home, refusing any further Lovenox shots. OBJECTIVE: VITAL SIGNS: Temperature 97.4, pulse 80 to 140, respiratory rate 20, blood pressure 124/83, and saturating 100% on room air. GENERAL: Middle-aged man in no acute distress. CARDIOVASCULAR: Irregular rate and rhythm. No murmurs, rubs, or gallops. LUNGS: Clear to auscultation anteriorly. ABDOMEN: Soft, nontender, and nondistended. NEURO AND PSYCH: Alert and oriented to person, place, and time. Normal affect. LABORATORY DATA: Reviewed. CARDIOVASCULAR MEDICATIONS: Reviewed. ASSESSMENT AND PLAN: 1. Deep venous thrombosis, status post thrombectomy and IVC filter placement. 2. Pulmonary embolism. 3. Atrial fibrillation with rapid ventricular response. 4. Colon cancer. 5. History of hypokalemia. RECOMMENDATIONS: Doing well post procedurally with no more edema of the right lower extremity. Ideally, the patient should be on therapeutic Lovenox given cancer and DVT; however, the patient is unable to give himself shots and refuses to take Lovenox long-term, at least at this time. We will continue IV heparin bridge to Coumadin with INR goal of 2 to 3. For atrial fibrillation, we will start scheduled metoprolol 25 mg q.6 hours with p.r.n. IV pushes as needed. We will add digoxin if indicated. Thank you for this consult. We will continue to follow. MD SUHAIL Smith/PLACIDOL /[id number]
[2019-02-28] MEDS ORDERED: POTASSIUM CHLORIDE 20 MEQ TAB CR PO SCH (18:00)
[2019-02-28] MEDS: BIMATOPROST(OPTH) 2.5 ML BOTTLE OP SCH (20:08)
[2019-02-28] MEDS: METOPROLOL TARTRATE 25 MG TAB PO SCH (23:58)
[2019-03-01] VITALS (20 sets, daily range): BP systolic 88–140; BP diastolic 61–86
[2019-03-01 00:19] LABS: INR 1.11; PROTHROMBIN TIME 14.8 seconds (11.9-14.5)
[2019-03-01] MEDS: HEPARIN 25,000 UNIT/D5W 250ML 250 ML IV SCH ×3 (00:50→14:31)
[2019-03-01] MEDS: METRONIDAZOLE 500MG/NS 100ML 100 ML IV SCH ×3 (03:44→19:59)
[2019-03-01 04:56] LABS: BASOPHILS # (AUTO) 0.1 (0.0-0.1); BASOPHILS % 1.1 % (0.0-1.0); EOSINOPHILS # (AUTO) 0.3 (0.0-0.4); EOSINOPHILS % 4.5 % (0.0-6.0); HEMATOCRIT 37.2 % (38.2-49.6); HEMOGLOBIN 12.5 g/dL (14.0-18.0); LYMPHOCYTES # (AUTO) 1.7 (1.0-3.2); MEAN CORPUSCULAR HEMOGLOBIN 31.1 pg (28-32); MEAN CORPUSCULAR HGB CONC 33.6 g/dL (31-35); MEAN CORPUSCULAR VOLUME 92.5 fL (81-99); MONOCYTES # (AUTO) 0.9 (0.2-0.8); MONOCYTES % 13.8 % (4.4-11.3); NEUTROPHILS # (AUTO) 3.1 (2.1-6.9); NEUTROPHILS % 49.9 % (38.7-80.0); PLATELET COUNT 158 x10e3/uL (140-360); RED BLOOD COUNT 4.02 x10e6/uL (4.3-5.7); RED CELL DISTRIBUTION WIDTH 13.8 % (11.7-14.4)
[2019-03-01 05:22] LABS: ALANINE AMINOTRANSFERASE 28 IU/L (0-55); ALBUMIN 2.8 g/dL (3.5-5.0); ALBUMIN/GLOBULIN RATIO 1.2 (0.8-2.0); ALKALINE PHOSPHATASE 23 IU/L (40-150); ANION GAP 11.9 mmol/L (8-16); BLOOD UREA NITROGEN 9 mg/dL (7-26); BUN/CREATININE RATIO 9 (6-25); CALCIUM 8.1 mg/dL (8.4-10.2); CARBON DIOXIDE 23 mmol/L (22-29); CHLORIDE 109 mmol/L (98-107); CREATININE, SERUM 1.01 mg/dL (0.72-1.25); EST GLOMERULAR FILTRATION RATE > 60 ML/MIN (60-); GLUCOSE 101 mg/dL (74-118); POTASSIUM 3.9 mmol/L (3.5-5.1); SODIUM 140 mmol/L (136-145)
[2019-03-01] MEDS: METOPROLOL TARTRATE 25 MG TAB PO SCH ×3 (06:15→17:37)
--- NOTE | 2019-03-01 07:51 | Progress Note ---
DATE: SUBJECTIVE: This is a 69-year-old gentleman with a history of colon cancer, comes in with colitis and also was found to have atrial fibrillation with RVR. The patient had one more episode of RVR yesterday, was kept in ICU for the same reason. Today, the patient is back to normal right. The patient also is status post thrombectomy and doing well. No complaints. No abdominal pain. No chest pain. No shortness of breath. OBJECTIVE: VITAL SIGNS: Today, temperature is afebrile, pulse of 71, respirations of 18, blood pressure is 101/72, pulse oximetry of 97%. HEENT: Normocephalic, atraumatic. Pupils are reactive to light and accommodation. CVS: S1, S2 irregular. ABDOMEN: Nontender, nondistended. EXTREMITIES: Positive for some edema on the right side, otherwise normal. LABORATORY VALUES: Today's white count of 6.2, hemoglobin of 12.5, hematocrit of 37.2. Chemistry; potassium 3.9, chloride 109, calcium 8.1. Coags, INR is 1.11 from 1.08. ASSESSMENT: Deep vein thrombosis, pulmonary embolism, atrial fibrillation with RVR, colitis, history of colon cancer, history of hypertension and hypokalemia. The patient continues to be on beta-blockade for atrial fibrillation. For pulmonary embolism, the patient is on heparin drip. We will continue monitoring it. The patient bridge to warfarin is 5 mg right now. Colon cancer, we will continue to monitor the patient for his colitis. The patient is on Flagyl and metoprolol for rate control. The patient is stable enough to be possibly transfer to the floor. We will continue monitoring the patient. Further recommendation per clinical course. MD NEVA AguirreJ/MODL /[id number]
[2019-03-01] MEDS: AZELASTINE HCL 137 MCG NASAL SPRAY NS PRN ×2 (08:00→21:12)
[2019-03-01] MEDS: BRIMONIDINE TARTRATE 0.15% OPTH DRPS 10ML BTL OP SCH ×2 (08:00→17:35)
[2019-03-01] MEDS: BRINZOLAMIDE 1% OPTH SUSP 10 ML BTL OU SCH ×2 (08:00→17:35)
[2019-03-01] MEDS ORDERED: WARFARIN SOD 5 MG TAB PO ONE ×2 (15:15→17:00)
[2019-03-01] MEDS: WARFARIN SOD 5 MG TAB PO SCH (17:36)
--- NOTE | 2019-03-01 20:03 | Progress Note ---
DATE: 03/01/2019 Cardiology Progress Note SUBJECTIVE: No major events overnight. Heart rate now better controlled. OBJECTIVE: VITAL SIGNS: Temperature afebrile, pulse 70, respiratory rate 16, blood pressure 100/76 saturating 97% on room air. GENERAL: Middle-aged man, in no acute distress. CARDIOVASCULAR: Regular rate and rhythm. No murmurs, rubs, or gallops. LUNGS: Clear to auscultation anteriorly. ABDOMEN: Soft, nontender, nondistended. NEURO AND PSYCH: Alert and oriented to person, place, time. Normal affect. LABORATORY DATA: Reviewed. CARDIOVASCULAR MEDICATIONS: Reviewed. TELEMETRY DATA: Reviewed, now in sinus rhythm since this morning. ASSESSMENT AND PLAN: 1. Deep venous thrombosis, status post thrombectomy and IVC filter placement. 2. Pulmonary embolism. 3. Atrial fibrillation with rapid ventricular response. 4. Colon cancer. 5. History of hypokalemia. RECOMMENDATIONS: Doing better now. Heart rate much better controlled on current regimen. Continue heparin bridge to warfarin. We will give an extra dose of warfarin today since INR remains at 1.1 as of this morning. Okay to be transfer to floor. Thank you for this consult. We will continue to follow. MD SUHAIL Simth/CATIA /[id number]
[2019-03-01] MEDS: BIMATOPROST(OPTH) 2.5 ML BOTTLE OP SCH (21:12)
[2019-03-02] VITALS (8 sets, daily range): BP systolic 114–129; BP diastolic 68–89
[2019-03-02] MEDS: METOPROLOL TARTRATE 25 MG TAB PO SCH ×4 (00:45→18:44)
[2019-03-02] MEDS: METRONIDAZOLE 500MG/NS 100ML 100 ML IV SCH ×3 (03:37→19:56)
[2019-03-02 06:14] LABS: BASOPHILS # (AUTO) 0.1 (0.0-0.1); BASOPHILS % 1.3 % (0.0-1.0); EOSINOPHILS # (AUTO) 0.2 (0.0-0.4); EOSINOPHILS % 3.6 % (0.0-6.0); HEMATOCRIT 39.9 % (38.2-49.6); HEMOGLOBIN 13.2 g/dL (14.0-18.0); LYMPHOCYTES # (AUTO) 1.4 (1.0-3.2); LYMPHOCYTES % 25.4 % (18.0-39.1); MEAN CORPUSCULAR HEMOGLOBIN 30.8 pg (28-32); MEAN CORPUSCULAR HGB CONC 33.1 g/dL (31-35); MEAN CORPUSCULAR VOLUME 93.2 fL (81-99); MONOCYTES # (AUTO) 0.7 (0.2-0.8); MONOCYTES % 12.7 % (4.4-11.3); NEUTROPHILS # (AUTO) 2.9 (2.1-6.9); NEUTROPHILS % 53.2 % (38.7-80.0); PLATELET COUNT 179 x10e3/uL (140-360); RED BLOOD COUNT 4.28 x10e6/uL (4.3-5.7); RED CELL DISTRIBUTION WIDTH 13.9 % (11.7-14.4)
[2019-03-02 06:33] LABS: ANION GAP 10.8 mmol/L (8-16); BLOOD UREA NITROGEN 10 mg/dL (7-26); BUN/CREATININE RATIO 9 (6-25); CALCIUM 8.4 mg/dL (8.4-10.2); CARBON DIOXIDE 22 mmol/L (22-29); CHLORIDE 108 mmol/L (98-107); CREATININE, SERUM 1.06 mg/dL (0.72-1.25); EST GLOMERULAR FILTRATION RATE > 60 ML/MIN (60-); GLUCOSE 96 mg/dL (74-118); POTASSIUM 3.8 mmol/L (3.5-5.1); SODIUM 137 mmol/L (136-145)
[2019-03-02] MEDS: BRINZOLAMIDE 1% OPTH SUSP 10 ML BTL OU SCH ×2 (08:30→18:43)
[2019-03-02] MEDS: BRIMONIDINE TARTRATE 0.15% OPTH DRPS 10ML BTL OP SCH ×2 (08:30→18:43)
[2019-03-02] MEDS: AZELASTINE HCL 137 MCG NASAL SPRAY NS PRN ×2 (08:30→18:49)
--- NOTE | 2019-03-02 10:27 | Progress Note ---
DATE: SUBJECTIVE: 69-year-old, status post thrombectomy for acute DVT, atrial fibrillation, and pulmonary embolism, currently getting 5 mg of warfarin daily. INR is pending. No complaints. No chest pain. No shortness of breath. No nausea, vomiting, or diarrhea. No rectal bleeding. No other bleeding diathesis seen. OBJECTIVE: VITAL SIGNS: Temperature 96.6, pulse of 65, respirations of 18, blood pressure is 125/77, pulse oximetry of 96%. HEENT: Normocephalic and atraumatic. Pupils are reactive to light and accommodation. CVS: S1 and S2, regular. ABDOMEN: Nontender and nondistended. EXTREMITIES: No clubbing. No cyanosis. Positive for edema on the right side, but better. MEDICATIONS: The patient is on metronidazole, metoprolol, Lumigan, Azelastine, warfarin 5 mg. He is on Azopt , on heparin protocol. Loperamide as needed and artificial tears. The patient is also getting dicyclomine as needed. LABORATORY VALUES: PT and PTT monitored for heparin protocol. Chemistries pending. Coags are pending today. Hemoglobin was 13.2 and hematocrit of 39.9. No left shift present. ASSESSMENT: 1. Deep vein thrombosis. 2. Atrial fibrillation with RVR, resolved. 3. Pulmonary embolism. 4. History of colitis. 5. History of colon cancer. 6. Hypertension and hyperkalemia. PLANS: Continue on beta-blockade. Continue monitoring his heart rate. The patient has been returned to normal sinus rhythm. Pulmonary embolism, the patient will need anticoagulation for one year. Dr. Luisq to follow with the patient. Bridge to Coumadin is being carried on at this time colon cancer. We will need to postpone his chemotherapy. For colitis, he will continue on Flagyl at this time. Further recommendations per clinical course. The patient can be discharged safely home when INR is between 2 and 3. MD THOMAS Aguirre/MODL /[id number]
--- NOTE | 2019-03-02 14:58 | Progress Note ---
DATE: Cardiology Progress Note SUBJECTIVE: The patient reports significant improvement in his right lower extremity symptoms. No chest pain, palpitations, or shortness of breath. OBJECTIVE: VITAL SIGNS: Temperature is 96.5, heart rate is 63, respirations are 18, blood pressure is 122/72, ox saturation 97% on room air. GENERAL: Well appearing, well built, no apparent distress. CARDIOVASCULAR: Regular rate and rhythm. LUNGS: Clear to auscultation. ABDOMEN: Soft, nontender, nondistended. EXTREMITIES: No edema. CARDIOVASCULAR MEDICATIONS: Reviewed. LABORATORY DATA: Reviewed. Hemoglobin 13.2, creatinine 1.06. Telemetry monitoring revealed normal sinus rhythm. IMPRESSION: 1. Deep venous thrombosis and pulmonary embolism, status post thrombectomy and inferior vena cava filter placement. 2. Paroxysmal atrial fibrillation. 3. Colon cancer. 4. History of hypokalemia. RECOMMENDATIONS: Rate is better controlled and he is maintaining normal sinus rhythm with metoprolol. Continue heparin bridge to warfarin for therapeutic INR of 2 to 3. Once his INR is therapeutic, he may be discharged from a cardiovascular standpoint. Plan will be to bring the patient back at a later date for IVC filter removal. DO MATT Guerrero/CATIA /[id number]
[2019-03-02 17:39] LABS: INR 1.46; PROTHROMBIN TIME 18.3 seconds (11.9-14.5)
[2019-03-02] MEDS: WARFARIN SOD 5 MG TAB PO SCH (18:45)
[2019-03-02] MEDS: BIMATOPROST(OPTH) 2.5 ML BOTTLE OP SCH (20:30)
[2019-03-03] VITALS (8 sets, daily range): BP systolic 110–142; BP diastolic 55–98
[2019-03-03] MEDS: METOPROLOL TARTRATE 25 MG TAB PO SCH ×4 (00:35→17:37)
[2019-03-03] MEDS: HEPARIN 25,000 UNIT/D5W 250ML 250 ML IV SCH ×2 (02:15→16:55)
[2019-03-03] MEDS: METRONIDAZOLE 500MG/NS 100ML 100 ML IV SCH ×3 (03:45→19:43)
[2019-03-03 06:16] LABS: BLOOD UREA NITROGEN 11 mg/dL (7-26); BUN/CREATININE RATIO 10 (6-25); CALCIUM 8.5 mg/dL (8.4-10.2); CARBON DIOXIDE 24 mmol/L (22-29); CHLORIDE 106 mmol/L (98-107); CREATININE, SERUM 1.11 mg/dL (0.72-1.25); EST GLOMERULAR FILTRATION RATE > 60 ML/MIN (60-); GLUCOSE 98 mg/dL (74-118); SODIUM 134 mmol/L (136-145)
[2019-03-03 06:55] LABS: INR 1.65; PROTHROMBIN TIME 20.1 seconds (11.9-14.5)
--- NOTE | 2019-03-03 07:26 | Progress Note ---
DATE: SUBJECTIVE: The patient is a 69-year-old gentleman with a history of acute DVT, pulmonary embolism, atrial fibrillation, status post vena cava filter, status post thrombectomy, who was in his usual state of health at this time. No complaints. Nausea was documented yesterday, but the patient is currently asymptomatic. Awaiting for INR to be therapeutic. OBJECTIVE: VITAL SIGNS: Temperature is 96.6, pulse of 66, respirations of 18, blood pressure is 120/67, and pulse oximetry of 98% on room air. HEENT: Normocephalic, atraumatic. Pupils are reactive to light and accommodation. CVS: S1, S2, regular. ABDOMEN: Nontender and nondistended. EXTREMITIES: No clubbing. Positive edema on the right side. LABORATORY VALUES: Today's white count is 5.5, hemoglobin of 13.2, and hematocrit of 39.9. Chemistries within normal limits. Sodium was 134. Coags, INR is 1.65 and yesterday is 1.46 at 5 mg of warfarin. ASSESSMENT: 1. Acute deep vein thrombosis, status post thrombectomy and inferior vena cava filter placement. 2. Paroxysmal atrial fibrillation. 3. Colon cancer. 4. Hypertension. 5. Hyponatremia. PLAN: Plan is to keep the patient here until INR is therapeutic. The patient also has colitis and is on Flagyl. Continue with warfarin 5 mg and continue with metoprolol. The patient can be discharged when INR is between 2-3. Further recommendation per clinical course. The patient's needs an IVC filter removed at a later date. Dr. Kevin Orlando is on the case and further recommendation per clinical course. MD THOMAS Aguirre/MODL /[id number]
[2019-03-03] MEDS: BRIMONIDINE TARTRATE 0.15% OPTH DRPS 10ML BTL OP SCH ×2 (08:42→16:38)
[2019-03-03] MEDS: BRINZOLAMIDE 1% OPTH SUSP 10 ML BTL OU SCH ×2 (08:42→16:38)
--- NOTE | 2019-03-03 15:54 | Consultation ---
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 HISTORY OF PRESENT ILLNESS: Thank you very kindly Dr. Carr for letting me to participate in the care of this pleasant 69-year-old male, well known to me. I have been following him since January of 2016, when he presented with carcinoma of the rectum/rectosigmoid area, treated with low anterior resection. He was stage 3 - T4a N2b. The tumor was above the peritoneal reflection. Postsurgery, he was treated with FOLFOX. A PET scan obtained before starting chemotherapy, revealed that he already had metastatic disease with 2 areas of abnormality in the liver and also disease in the lymph nodes. Avastin was added after the third cycle of chemotherapy. He developed neuropathy in June 2016. A followup CT scan showed marked improvement in the retroperitoneal adenopathy and almost complete resolution of the liver disease. He initially had a proximal colostomy, which was reversed after chemotherapy treatment. In October 2016, he was placed on maintenance Avastin and oral capecitabine and stereotactic radiation was administered to the liver lesions. In May [address] the liver lesions were completely resolved and abdominal adenopathy had decreased substantially. He was having trouble tolerating capecitabine, so the dose was reduced because of prolonged hand-foot syndrome. A PET scan in December 2017 revealed complete remission. In that point, the patient elected to change to maintenance capecitabine only, but he was not able to tolerate, and eventually the dose was reduced to 500 mg b.i.d., one week on and one week off. He did well until November of 2018, when he developed a new nodule on CT chest, left upper lobe, which was only 6 mm, however, new lymph nodes in the abdomen were noted. His treatment protocol was changed to FOLFIRI with Avastin. He initially tolerated it well, but subsequently had difficulty with severe diarrhea and was admitted to the hospital with dehydration, swelling of the leg, weakness, and was noted to have DVT and pulmonary embolism. Dr. Orlando, the refund clerk, who saw the patient, proceeded with catheter-directed thrombolysis in view of the large clot burden. Temporary IVC filter was placed. He has tolerated this well and is progressively recovering. He was placed on Warfarin. Additional details of history as documented in the chart. PHYSICAL EXAMINATION: GENERAL: Reveals a somewhat chronically ill-looking male, but well nourished, comfortable at rest in bed. HEENT: His conjunctivae were little pale. There is no icterus. There is no palpable adenopathy. NECK: No neck vein distention was noted. LUNGS: Clinically, were clear. HEART: Sounds appeared within normal limits. ABDOMEN: Soft. No visceromegaly or ascites was noted. EXTREMITIES: There was no calf muscle tenderness. IMPRESSION: Deep vein thrombosis/pulmonary embolism in a patient with metastatic carcinoma of the colon. He is currently on warfarin. Additionally, CT scan of the abdomen suggested the evidence of colitis plus abdominal lymphadenopathy along with the pulmonary emboli in the lower lobes. The lymph node was right pelvic side wall node, which has remained unchanged from the previous study of 01/09/2016 had a 5 mm right middle lobe pulmonary nodule of indeterminate significance, but overall it appears that his lymph node disease is much better. DISCUSSION: I discussed the case with Dr. Carr. I will recommend switching him to Xarelto as warfarin is not as effective in the patient with malignancy, who have thromboembolic disease. There is slightly higher risk of bleeding complications as compared to low molecular weight heparin, but effectiveness is similar or better. He could be discharged on Xarelto and I will follow him in the office. MD ART Barrientos/CATIA /[id number] cc: Kevin Orlando DO
[2019-03-03] MEDS: WARFARIN SOD 5 MG TAB PO SCH (16:38)
--- NOTE | 2019-03-03 18:35 | Progress Note ---
DATE: 03/03/2019 Cardiology Progress Note BODY AFTER ALLERGIES: SUBJECTIVE: No major events overnight. OBJECTIVE: VITAL SIGNS: Afebrile, pulse 62, respiratory rate 18, blood pressure 124/77 saturating 98% on room air. GENERAL: Well-appearing, well built, no apparent distress. CARDIOVASCULAR: Regular rate and rhythm. No murmurs, rubs, or gallops. LUNGS: Clear to auscultation. ABDOMEN: Soft, nontender, nondistended. NEURO AND PSYCH: Alert and oriented to person, place, and time. Normal affect. CARDIOVASCULAR MEDICATIONS: Reviewed. LABORATORY DATA: Reviewed. INR is now 1.65. TELEMETRY DATA: Reviewed. It shows normal sinus rhythm. Occasional sinus bradycardia. ASSESSMENT: 1. Deep venous thrombosis and pulmonary embolism status post thrombectomy and inferior vena cava filter placement. 2. Paroxysmal atrial fibrillation. 3. Colon cancer. 4. History of hypokalemia. RECOMMENDATIONS: The patient is currently in sinus rhythm with current dose of metoprolol. Continue heparin bridge to warfarin therapeutic range INR of 2 to 3. Once INR is therapeutic, he may be discharged from cardiovascular standpoint. He will follow up with Dr. Kevin Orlando as an outpatient and we will plan for IVC filter removal at that time. Thank you for this consult. We will continue to follow. MD SUHAIL Smith/PLACIDOL /[id number]
[2019-03-03] MEDS: AZELASTINE HCL 137 MCG NASAL SPRAY NS PRN (19:43)
[2019-03-03] MEDS: BIMATOPROST(OPTH) 2.5 ML BOTTLE OP SCH (19:43)
[2019-03-04] VITALS (8 sets, daily range): BP systolic 111–132; BP diastolic 72–84
[2019-03-04] MEDS: METRONIDAZOLE 500MG/NS 100ML 100 ML IV SCH ×3 (02:59→19:43)
[2019-03-04] MEDS: METOPROLOL TARTRATE 25 MG TAB PO SCH ×4 (05:36→17:45)
--- NOTE | 2019-03-04 06:58 | Progress Note ---
DATE: SUBJECTIVE: The patient is admitted to the hospital for acute DVT, status post thrombectomy, status post retrievable vena cava filter. The patient is asymptomatic. Dr. Vanessa was appreciated, his oncologist, consult noted and the patient was asked to be changed to Xarelto, citing Xarelto being better than warfarin for anticoagulation for the patient's with colon cancer. The patient is asymptomatic. No chest pain or shortness of breath. Pain in the lower extremities better and stools are more formed. OBJECTIVE: VITAL SIGNS: Currently, temperature 96, pulse of 68, respirations of 19, blood pressure is 111/79, pulse oximetry of 97%. HEENT: Normocephalic, atraumatic. Pupils are reactive to light and accommodation. CVS: S1 and S2 irregular. ABDOMEN: Nontender, nondistended. EXTREMITIES: No clubbing. No cyanosis. Positive for edema on the right lower extremity. MEDICATIONS: Metoprolol q.6 hours, Flagyl IV q.6 hours, multiple glaucoma medications. He is on heparin and warfarin for anticoagulation, dicyclomine as needed for abdominal pain. LABORATORY VALUES: White count and hemoglobin have been normal for the last days of admission. Sodium is 134, potassium 4.0. Coags pending. Today's TSH is 1.65. ASSESSMENT: 1. Acute deep venous thrombosis, acute pulmonary embolism, status post thrombectomy, status post retrievable vena cava filter. 2. History of colon cancer. 3. History of hypertension. 4. History of electrolyte imbalance. PLAN: Again would be to switch him to Xarelto today 15 mg twice a day. The patient can be discharged home this evening or in the morning tomorrow depending on clinical course. We will continue to monitor the patient. Dr. Olivier is to follow up the patient with our plans of IVC filter retrieval. Further recommendation per clinical course. Again, discharge plan this evening or tomorrow. MD THOAMS Aguirre/PLACIDOL /[id number]
[2019-03-04 07:53] LABS: INR 1.72; PROTHROMBIN TIME 20.8 seconds (11.9-14.5)
[2019-03-04] MEDS: BRIMONIDINE TARTRATE 0.15% OPTH DRPS 10ML BTL OP SCH ×2 (08:41→17:45)
[2019-03-04] MEDS: RIVAROXABAN 15 MG TABLET PO SCH ×2 (08:41→17:45)
[2019-03-04] MEDS: BRINZOLAMIDE 1% OPTH SUSP 10 ML BTL OU SCH ×2 (08:41→17:45)
--- NOTE | 2019-03-04 09:58 | Progress Note ---
DATE: I have reviewed the chart and evaluated the patient. The case was discussed with Dr. Joby Carr. I have recommended switching the patient to Xarelto as the oral anticoagulant medication for long-term use with his background of carcinoma of the colon on chemotherapy with DVT and pulmonary embolism. Additionally, the IVC filter needs to be removed in a few weeks. The patient could be released as soon as he is stable and I will follow up with him in the office. Michelle Vanessa MD [facility]/MODL /[id number]
[2019-03-04] MEDS: BIMATOPROST(OPTH) 2.5 ML BOTTLE OP SCH (19:43)
--- NOTE | 2019-03-04 21:29 | Progress Note ---
DATE: 03/04/2019 Cardiology Progress Note SUBJECTIVE: No major events overnight. OBJECTIVE: VITAL SIGNS: Temperature afebrile, pulse 62, respiratory rate 18, blood pressure 124/77, saturating 98% on room air. GENERAL: Well developed, well nourished, in no acute distress. CARDIOVASCULAR: Regular rate and rhythm. No murmurs, rubs, or gallops. LUNGS: Clear to auscultation. ABDOMEN: Soft, nontender, nondistended. NEURO AND PSYCH: Alert and oriented to person, place, and time. Normal affect. INPATIENT MEDICATIONS: Reviewed. LABORATORY DATA: Reviewed. TELEMETRY DATA: Reviewed, shows normal sinus rhythm. ASSESSMENT: 1. Deep venous thrombosis and pulmonary embolism, status post thrombectomy and inferior vena cava filter placement. 2. Paroxysmal atrial fibrillation. 3. Colon cancer. RECOMMENDATIONS: Continue heparin bridge to Coumadin. Awaiting INR to be therapeutic prior to discharge. Follow up with Dr. Orlando in clinic for removal of IVC filter in the future. Thank you for this consult. We will continue to follow. MD SUHAIL Smith/CATIA /[id number]
[2019-03-04] MEDS: AZELASTINE HCL 137 MCG NASAL SPRAY NS PRN (23:45)
[2019-03-05 00:36] VITALS: BP 138/75
[2019-03-05] MEDS: METOPROLOL TARTRATE 25 MG TAB PO SCH ×2 (00:55→05:53)
[2019-03-05] MEDS: METRONIDAZOLE 500MG/NS 100ML 100 ML IV SCH (03:38)
--- NOTE | 2019-03-05 07:20 | Progress Note ---
DATE: SUBJECTIVE: The patient is here for acute DVT, pulmonary embolism, status post thrombectomy, history of colon cancer, and history of atrial fibrillation, new onset. Currently, the patient is asymptomatic, no complaint, is ready to go home. Eating well. Bowel movements are good. No mucus noted. No chest pains. No shortness of breath and no rectal bleeding. MEDICATIONS: Artificial Tears, azelastine, Lumigan, Alphagan, Azopt, dicyclomine as needed, loperamide as needed, metoprolol 25 mg q.6 hours, Zofran as needed, Xarelto 15 mg twice a day, and sodium chloride flushes as needed. OBJECTIVE: VITAL SIGNS: Stable. HEENT: Normocephalic, atraumatic. Pupils are reactive to light and accommodation. CVS: S1, S2 normal. Regular rate and rhythm. ABDOMEN: Nontender, nondistended. EXTREMITIES: No clubbing, no cyanosis. Trace edema on the right side. ASSESSMENT: 1. Acute pulmonary embolism, acute DVT. The patient is on Xarelto 50 mg twice a day, can be discharged home on 50 mg twice a day. 2. Atrial fibrillation with rapid ventricular response. The patient is converted to normal sinus rhythm. We will send the patient home on 50 mg of metoprolol twice a day and supplement with Xarelto. 3. History of colon cancer. The patient to follow up with Dr. Vanessa for further recommendation and renewal of chemotherapy depending on Oncology. 4. History of colitis. The patient was on Flagyl. I have discontinued Flagyl at this time. Further recommendation per clinical course. The patient is to follow up with Dr. Mcclure for possible colonoscopy, with Dr. Vanessa for chemotherapy and continuum of Xarelto, with Dr. Kevin Orlando for retrieval of the vena caval filter. Joby Carr MD [facility]/MODL /[id number]
[2019-03-05 08:05] VITALS: BP 119/86
[2019-03-05] MEDS: RIVAROXABAN 15 MG TABLET PO SCH (08:20)
[2019-03-05] MEDS: BRINZOLAMIDE 1% OPTH SUSP 10 ML BTL OU SCH (08:20)
[2019-03-05] MEDS: BRIMONIDINE TARTRATE 0.15% OPTH DRPS 10ML BTL OP SCH (08:20)
== END 2019-03-05 09:00 | disposition home or self-care (01) | DRG 270 ==
LOC: ER 20:31 → ERHOLD 02-24 00:12 → MED/SURG 02-24 01:12 → ICU 02-25 16:26 → MED/SURG 03-01 15:44
PROVIDERS: ADMIT Family Medicine; ATTEND Family Medicine
PROC: 3E04017 Introduction of Other Thrombolytic into Central Vein, Open Approach (ICD-10-PCS; principal; 2019-02-25)
PROC: 06H03DZ Insertion of Intraluminal Device into Inferior Vena Cava, Percutaneous Approach (ICD-10-PCS; 2019-02-25)
PROC: 04CK3ZZ Extirpation of Matter from Right Femoral Artery, Percutaneous Approach (ICD-10-PCS; 2019-02-26)
DX: I82.411 Acute embolism and thrombosis of right femoral vein (principal); I26.99 Other pulmonary embolism without acute cor pulmonale; E87.1 Hypo-osmolality and hyponatremia; C18.9 Malignant neoplasm of colon, unspecified; C78.7 Secondary malignant neoplasm of liver and intrahepatic bile duct; C77.9 Secondary and unspecified malignant neoplasm of lymph node, unspecified; C78.00 Secondary malignant neoplasm of unspecified lung; E87.6 Hypokalemia; E87.5 Hyperkalemia; K52.9 Noninfective gastroenteritis and colitis, unspecified; I48.0 Paroxysmal atrial fibrillation
CPT/HCPCS: 36010; 36012; 36415; 37187; 37191; 37212; 74177; 75820; 75825; 80048; 80053; 82270; 83735; 85025; 85230; 85597; 85610; 85613; 85730; 87493; 93005; 93925; 93970; 96360; 96361; 96374; 99284; C1757; C1766; C1769; J1644; J1650; J2001; J2250; J2405; J2550; J2997; J7030; J7070; Q9967

== ENCOUNTER → 2019-05-06 | Day surgery (SDC) | payer MEDICARE, BC ==
[2019-05-04 13:30] LABS: BASOPHILS # (AUTO) 0.1 (0.0-0.1); BASOPHILS % 0.6 % (0.0-1.0); EOSINOPHILS # (AUTO) 0.2 (0.0-0.4); EOSINOPHILS % 2.1 % (0.0-6.0); HEMATOCRIT 46.9 % (38.2-49.6); HEMOGLOBIN 15.8 g/dL (14.0-18.0); LYMPHOCYTES # (AUTO) 3.2 (1.0-3.2); LYMPHOCYTES % 40.2 % (18.0-39.1); MEAN CORPUSCULAR HEMOGLOBIN 31.2 pg (28-32); MEAN CORPUSCULAR HGB CONC 33.7 g/dL (31-35); MEAN CORPUSCULAR VOLUME 92.7 fL (81-99); MONOCYTES # (AUTO) 0.6 (0.2-0.8); NEUTROPHILS % 49.6 % (38.7-80.0); PLATELET COUNT 188 x10e3/uL (140-360); RED BLOOD COUNT 5.06 x10e6/uL (4.3-5.7); RED CELL DISTRIBUTION WIDTH 13.6 % (11.7-14.4)
[2019-05-04 13:40] LABS: INR 1.27; PROTHROMBIN TIME 16.5 seconds (11.9-14.5)
[2019-05-04 13:50] LABS: ALANINE AMINOTRANSFERASE 18 IU/L (0-55); ALBUMIN 4.3 g/dL (3.5-5.0); ALBUMIN/GLOBULIN RATIO 1.3 (0.8-2.0); ALKALINE PHOSPHATASE 28 IU/L (40-150); ANION GAP 15.1 mmol/L (8-16); BLOOD UREA NITROGEN 12 mg/dL (7-26); BUN/CREATININE RATIO 11 (6-25); CALCIUM 9.5 mg/dL (8.4-10.2); CARBON DIOXIDE 23 mmol/L (22-29); CHLORIDE 104 mmol/L (98-107); CREATININE, SERUM 1.09 mg/dL (0.72-1.25); EST GLOMERULAR FILTRATION RATE > 60 ML/MIN (60-); GLUCOSE 100 mg/dL (74-118); POTASSIUM 4.1 mmol/L (3.5-5.1); SODIUM 138 mmol/L (136-145)
[~2019-05-06] VITALS: Ht 190.5 cm; Wt 97.5 kg
[2019-05-06] VITALS (8 sets, daily range): BP systolic 122–136; BP diastolic 66–101
[~2019-05-06] MED LIST changes: +AZELASTINE137 MCG/0.; +DICYCLOMINE HCL10 MG PO; +DIPHENHYDRAMINE HCL 25 MG CAP ONE; +HEPARIN SOD/SOD CHLORIDE 2,000 ML ONE; +IMODIUM2 MG PO; +IOPAMIDOL 370 MG/ML 200 ML INFUS..BTL INJ ONE; +LIDOCAINE HCL 2% LOCAL 20 ML VIAL ONE; +MAALOX ADVANCE1 EACH PO; +METOPROLOL TART25 MG PO; +MIDAZOLAM HCL 2 MG/2 ML VIAL ONE; +MILK OF MA2400 MG/10 PO; +MORPHINE SULFATE INJ 4 MG/ML INJ 1ML ONE; +SODIUM CHLORIDE 0.9% 1000ML 1,000 ML ONE; +XARELTO20 MG PO; +ZOFRAN4 MG PO
--- OUTSIDE RECORDS SUMMARY | 2019-05-06 06:31 | XMS REPORT ---
Author Author [facility] Address Unknown Phone Unavailable Care Team Providers Care Residential Concierge Name Role Phone Deepak LAU Unavailable Unavailable Problems This patient has no known problems. Allergies, Adverse Reactions, Alerts This patient has no known allergies or adverse reactions. Medications This patient has no known medications. Results Test Description Test Time Test Comments Text Results Atomic Results Result Comments CT ABDOMEN/PELVIS W 2019-02-24 09:47:00 [place] [address] Patient Name: MARILYN LLOYD MR #: [id number] : 1950 Age/Sex: 69/M Req #: [id number] Adm Physician: ADARSH LAU MD Ordered by: ADARSH LAU MD Report #: [id number] Location: MED/SURG Room/Bed: [facility] Procedure: [id number] CT/CT ABDOMEN/PELVIS W Exam Date: 02/24/19 Exam Time: 0920 REPORT STATUS: Signed EXAMINATION: CT of the abdomen and pelvis with cont rast. TECHNIQUE: Spiral CT images of the abdomen and pelvis were performed from the lung bases to the lesser trochanters after the intravenous administration of 100 cc Isovue-370. Coronal and sagittal reformatted images were obtained. COMPARISON: 01/09/2016 CLINICAL HISTORY:Abdominal pain, history of colorectal cancer, history of DVT DISCUSSION: ABDOMEN/PELVIS: LOWER THORAX:Filling defect in the right lower lobe pulmonary artery partially visualized (series 2 image 2). Additional filling defects in segmental branches of the left lower lobe pulmonary artery, also partially visualized (series 2 image 5). Subsegmental atelectasis in the dependent lower lobes. 5 mm juxtapleural right middle lobe nodule (series 2 image 11). HEPATOBILIARY: No focal hepatic lesions. No intra-or extrahepatic biliary ductal dilation. The gallbladder has been removed. Metallic clips in the gallbladder fossa. SPLEEN: No splenomegaly. PANCREAS: No focal masses or ductal dilatation. ADRENALS: No adrenal nodules. KIDNEYS/URETERS: No hydronephrosis, stones, or solid mass lesions. PELVIC ORGANS/BLADDER: The urinary bladder is unremarkable. Mild prostatomegaly with mass effect on the bladder base. PERITONEUM/RETROPERITONEUM: No free air or fluid. LYMPH NODES: 2.5 x 2.7 cm enlarged right pelvic sidewall/internal iliac chain lymph node seen on series 2 image 75, similar in size to that described on 01/09/2016. No retroperitoneal or mesenteric lymphadenopathy. VESSELS: Atherosclerotic calcification of the abdominal aorta without aneurysmal dilatation. Early origin of the right hepatic artery from the celiac axis with otherwise conventional hepatic arterial anatomy. 2 left and single right renal artery. Portal vein, splenic vein, and central superior mesenteric vein are patent. Increased caliber and adjacent fat stranding along the right common femoral and external iliac vein in keeping with previously diagnosed deep venous thrombosis. GI TRACT: Radiopaque suture material along the rectum. Descending and sigmoid colon are partially collapsed with mild wall thickening, mucosal enhancement and adj acent mesocolic inflammation. Ascending colon shows no distention or wall thickening. The appendix is not definitively identified. No small bowel dilatation to suggest obstruction. Stomach is collapsed with prominent rugal folds. BONES AND SOFT TISSUE: No osseous destructive lesions. No soft tissue abnormalities. IMPRESSION: Partially visualized bilateral lower lobe pulmonary emboli with findings of right common femoral and external iliac deep venous thrombosis. Per EMR patient is undergoing treatment with therapeutic systemic heparinization. Findings suggestive of infectious or inflammatory colitis involving the descending and sigmoid colon. No perforation or drainable fluid collection. Enlarged right pelvic sidewall lymph node is without significant interval change in size relative to 01/09/2016, though remains concerning for metastatic disease in this patient with known history of colorectal cancer. PET-CT may be of benefit to assess for metabolic activity/viability of this lymph node. 5 mm right middle lobe pulmonary nodule is indeterminate and should be followed closely on subsequent cross-sectional imaging examinations. Findings were discussed by telephone with the patient's nurse Ms. Chester at 10:05 AM 02/24/2019. Signed by: Dr. Leandro Majano M.D. on 02/24/2019 10:09 AM Dictated By: LEANDRO MAJANO MD [id number] Transcribed By: PETER on 02/24/19 1009 COPY TO: ADARSH LAU MD
--- NOTE | 2019-05-06 08:30 | NUR ---
0830am Bedside report received from JAMARI Valdez.Identiferx2. Alert oriented and appropriate, PERRLA, respirations even and unlabored to room air. Pulses x4 extremities equal and strong. Pedal pulses PT/DP x4. Cap fill brisk < 3 sec. Skin warm and dry integrity appears. IV 20g to left hand at 100cchr via iv controller. Presents healthy w/o s/s of infiltration or complaint. Abdomen soft and supple. pt offered toileting, denies need to urinate or defecate. No personal affects with patient. Family daughter Analisa . Pt and daughter family verbalizes understanding of POC.Has copies of paper work. C/o itchy red eyes paged Md via cell and MD office. lucy/jamari
--- NOTE | 2019-05-06 09:15 | NUR ---
0915 received orders po Benadryl 25mg pox1. Side rails up, call light at bedside,bed in low position. Informed to call for assistance daughter remains at bedside. Snack tray tolerated well. ds/rn
--- NOTE | 2019-05-06 09:43 | NUR ---
0943 stable no c/o eyes less red. Resting quietly. dc time remains 10:30am. No gross issues pain pallor pressure or dysrhythmia. ds/rn
--- NOTE | 2019-05-06 10:15 | NUR ---
1015 Eyes less red denies c/o of pain or itching. Benadryl po appears to relieve symptoms. ds/rn
--- NOTE | 2019-05-06 10:30 | NUR ---
1030amn Pt meets DC criteria. Rt Ij site assessed for s/s of complication and presence of hematoma. warm, dry, no discolor, and pulses present. IV removed from left hand . Distal tip appears intact. VS WNL. Pt denies pain, sob, or need at this time. Family at bedside Daughter Analisa. Review of discharge paperwork and follow up instructions. verbalized understanding. Pt to wheelchair and transported to front of hospital. Transferred to private vehicle under own strength w/o incident with DC paperwork in hand. - ds/rn
--- NOTE | 2019-05-06 15:51 | Operative Report ---
DATE OF PROCEDURE: SURGEON: Kevin Orlando DO PROCEDURES PERFORMED: 1. Ultrasound guidance vascular access of the right internal jugular vein. 2. Catheter placement in the inferior vena cava. 3. Venography. 4. Inferior vena caval filter removal. PREPROCEDURE DIAGNOSIS: History of deep venous thrombosis, status post thrombectomy and inferior vena cava filter placement. POSTPROCEDURE DIAGNOSIS: History of deep venous thrombosis, status post thrombectomy and inferior vena cava filter placement. ESTIMATED BLOOD LOSS: Less than 20 mL. SPECIMENS REMOVED: None. PROCEDURE IN DETAIL: After informed consent was obtained, the patient was brought to the cardiac catheterization laboratory in a fasting and nonsedated state. His right neck was prepped and draped in the usual sterile fashion. Using ultrasound guidance, the right internal jugular vein was accessed via the modified Seldinger technique and I placed a 5-Portuguese sheath. Using a multipurpose catheter and a Wholey wire, I was able to direct this past the inferior vena cava filter and diagnostic venography was performed. There was no evidence of significant thrombus or perforation of the inferior vena cava. Using the dual sheath technique, the inferior vena cava was snared and removed in the typical fashion. There were no complications. Subsequent venography confirmed patency of the inferior vena cava without dissection or disruption. The sheath was then removed and hemostasis was achieved via manual pressure. The patient tolerated the procedure well with no immediate complications and brought back to his room in stable condition. IMPRESSION: History of deep vein thrombosis with inferior vena cava filter. RECOMMENDATIONS: He is now status post removal with excellent results. Continue anticoagulation. Kevin Orlando DO BM/MODL /[id number]
== END | disposition home or self-care (01) ==
LOC: CATH LAB 06:14
PROVIDERS: ATTEND Internal Medicine Cardiovascular Disease
DX: Z45.2 Encounter for adjustment and management of vascular access device (principal); Z45.89 Encounter for adjustment and management of other implanted devices; Z86.718 Personal history of other venous thrombosis and embolism
CPT/HCPCS: 36415; 37193; 75825; 76937; 80053; 85025; 85610; C1769 ×2; J2001; J2250; J2270; J7030; Q9967

== ENCOUNTER 2020-04-14 12:04 | Inpatient (IN) | payer MEDICARE, BC, OTHER ==
[~2020-04-14] VITALS: Ht 190.5 cm; Wt 97.5 kg
[~2020-04-14 12:04] MED LIST changes: -DIPHENHYDRAMINE HCL 25 MG CAP ONE; -HEPARIN SOD/SOD CHLORIDE 2,000 ML ONE; -IOPAMIDOL 370 MG/ML 200 ML INFUS..BTL INJ ONE; -LIDOCAINE HCL 2% LOCAL 20 ML VIAL ONE; -MIDAZOLAM HCL 2 MG/2 ML VIAL ONE; -MORPHINE SULFATE INJ 4 MG/ML INJ 1ML ONE; -SODIUM CHLORIDE 0.9% 1000ML 1,000 ML ONE
--- NOTE | 2020-04-14 12:22 | Emergency Department Note ---
History of Present Illnes History of Present Illness Chief Complaint: Back Pain History of Present Illness This is a 70 year old male arrived to the ED with back pain [facility] to [facility]. Chief Complaint Comment c/o right lower back pain radiating down to legs xrays done at dr duong's office and told to come into er for further eval denies n/v states he is urinating less no hx kidney stones states he was dealing with this for a couple of weeks but progressively got harder to walk and has need to use cane seen by dr patrick Historian: Patient Arrival Mode: Car Onset (how long ago): day(s) Radiation: Reports back Severity: mild Duration (how long): day(s) Timing of current episode: constant Progression: worsening Context: Denies recent illness, Denies trauma/injury Past Medical/Family History Physician Review I have reviewed the patient's past medical and family history. Any updates have been documented here. Past Medical History Recent Fever: No Clinical Suspicion of Infectio: No New/Unexplained Change in Ment: No Past Medical History: Cancer Other Medical History: ACID REFLUX glaucoma COLON CA CHEMOTHERAPY 02/17/19 Past Surgical History: Cholecysctectomy Other Surgery: COLON RESECTION COLOSTOMY reversal Social History Smoking Cessation: Never Smoker Counseling Performed: No Alcohol Use: None Any Illegal Drug Use: No Other Last Tetanus: UNK Any Pre-Existing Lines (PICC,: No Review of Systems Review of Systems Constitutional: Reports no symptoms EENTM: Reports no symptoms Cardiovascular: Reports no symptoms Respiratory: Reports no symptoms Gastrointestinal: Reports no symptoms Genitourinary: Reports no symptoms Musculoskeletal: Reports as per HPI, Reports back pain Integumentary: Reports no symptoms Neurological: Reports no symptoms Psychological: Reports no symptoms Endocrine: Reports no symptoms Hematological/Lymphatic: Reports no symptoms Physical Exam Related Data Allergies: Coded Allergies: promethazine (Verified Adverse Reaction, Unknown, LETHARGIC, 04/14/20) Triage Vital Signs Vital Signs Date Time Temp Pulse Resp B/P (MAP) Pulse Ox O2 Delivery O2 Flow Rate FiO2 04/14/20 12:13 Vital signs reviewed: Yes Physical Exam CONSTITUTIONAL Constitutional: Present well-developed, Present well-nourished HENT HENT: Present normocephalic, Present atraumatic, Present oropharynx clear/moist, Present nose normal HENT L/R: Present left ext ear normal, Present right ext ear normal EYES Eyes: Reports PERRL, Reports conjunctivae normal NECK Neck: Present ROM normal PULMONARY Pulmonary: Present effort normal, Present breath sounds normal CARDIOVASCULAR Cardiovascular: Present regular rhythm, Present heart sounds normal, Present capillary refill normal, Present normal rate GASTROINTESTINAL Abdominal: Present soft, Present nontender, Present bowel sounds normal GENITOURINARY Genitourinary: Present exam deferred SKIN Skin: Present warm, Present dry MUSCULOSKELETAL NEUROLOGICAL Neurological: Present alert, Present oriented x 3, Present no gross motor or sensory deficits PSYCHOLOGICAL Psychological: Present mood/affect normal, Present judgement normal Results Laboratory Lab results reviewed: Yes Laboratory comments Laboratory Tests Test 04/14/20 16:50 04/14/20 15:47 White Blood Count 12.41 x10e3/uL (4.8-10.8) Red Blood Count 5.14 x10e6/uL (4.3-5.7) Hemoglobin 15.0 g/dL (14.0-18.0) Hematocrit 46.8 % (38.2-49.6) Mean Corpuscular Volume 91.1 fL (81-99) Mean Corpuscular Hemoglobin 29.2 pg (28-32) Mean Corpuscular Hemoglobin Concent 32.1 g/dL (31-35) Red Cell Distribution Width 13.6 % (11.7-14.4) Platelet Count 285 x10e3/uL (140-360) Neutrophils (%) (Auto) 73.9 % (38.7-80.0) Lymphocytes (%) (Auto) 13.5 % (18.0-39.1) Monocytes (%) (Auto) 9.3 % (4.4-11.3) Eosinophils (%) (Auto) 1.3 % (0.0-6.0) Basophils (%) (Auto) 0.5 % (0.0-1.0) Neutrophils # (Auto) 9.2 (2.1-6.9) Lymphocytes # (Auto) 1.7 (1.0-3.2) Monocytes # (Auto) 1.2 (0.2-0.8) Eosinophils # (Auto) 0.2 (0.0-0.4) Basophils # (Auto) 0.1 (0.0-0.1) Absolute Immature Granulocyte (auto 0.19 x10e3/uL (0-0.1) Sodium Level 137 mmol/L (136-145) Potassium Level 4.1 mmol/L (3.5-5.1) Chloride Level 99 mmol/L (98-107) Carbon Dioxide Level 25 mmol/L (22-29) Anion Gap 17.1 mmol/L (8-16) Blood Urea Nitrogen 22 mg/dL (7-26) Creatinine 1.52 mg/dL (0.72-1.25) Estimat Glomerular Filtration Rate 46 ML/MIN (60-) BUN/Creatinine Ratio 14 (6-25) Glucose Level 100 mg/dL (74-118) Calcium Level 11.5 mg/dL (8.4-10.2) Total Bilirubin 0.6 mg/dL (0.2-1.2) Aspartate Amino Transf (AST/SGOT) 52 IU/L (5-34) Alanine Aminotransferase (ALT/SGPT) 22 IU/L (0-55) Alkaline Phosphatase 73 IU/L (40-150) Total Protein 8.5 g/dL (6.5-8.1) Albumin 3.8 g/dL (3.5-5.0) Globulin 4.7 g/dL (2.3-3.5) Albumin/Globulin Ratio 0.8 (0.8-2.0) Imaging Imaging results reviewed: Yes Impressions IMPRESSION: 1. Approximately 8.6 cm right presacral lymph node conglomerate, likely metastatic given history of colorectal cancer, has markedly increased in size. This mass invades the right sacral ala and right S1-S2 anterior sacral foramen. There is likely encasement of the local neurovascular structures and right ureter with right hydronephrosis and right hydroureter. 2. Multiple lytic osseous metastases throughout the imaged spine and pelvis. 3. L5 posterior vertebral metastasis is associated with mild pathologic compression fracture of the inferior endplate and local epidural tumor extension, which results in at least moderate canal stenosis. Moderate right L5-S1 foraminal stenosis is due to disc bulge, tumor extension, and facet arthrosis. Further evaluation with contrast-enhanced CT of the abdomen/pelvis is recommended if clinically feasible. Signed by: Dr. Manuel Fernandez M.D. on 04/14/2020 1:54 PM Assessment & Plan Medical Decision Making MDM 62-year-old male brought to the ED with complaints of back pain, noted to have marked metastasis with concerns of hydroureter. Urology consultation, patient taken to the OR for stent placement. Assessment & Plan Final Impression: (1) Hydroureter (2) Colorectal cancer, stage IV Depart Disposition: ADMITTED Last Vital Signs Date Time Temp Pulse Resp B/P (MAP) Pulse Ox O2 Delivery O2 Flow Rate FiO2 04/14/20 12:13 Home Meds Reported Medications Calcium Carbonate/Simethicone (MAALOX ADVANCED TAB CHEW) 1 Each Tab.chew, 1 TAB PO PRN PRN for GI UPSET 05/04/19 Metoprolol Tartrate (METOPROLOL TARTRATE) 25 Mg Tablet, 25 MG PO BID, TAB 05/04/19 Rivaroxaban (XARELTO) 20 Mg Tablet, 20 MG PO DAILY 05/04/19 Azelastine Hcl (AZELASTINE HCL) 137 Mcg/0.137 Ml [place].pump, 1 INH NA BID PRN for NASAL CONGESTION 02/24/19 Dicyclomine Hcl (DICYCLOMINE HCL) 10 Mg Capsule, 1-2 TBS PO Q6H PRN for NAUSEA 02/24/19 Ondansetron Hcl* (ZOFRAN*) 4 Mg Tablet, 8 MG PO Q6H PRN for NAUSEA 02/24/19 Magnesium Hydroxide (MILK OF MAGNESIA) 2,400 Mg/10 Ml Oral.susp, 30 ML PO BID PRN for CONSTIPATION 02/24/19 Loperamide Hcl* (IMODIUM*) 2 Mg Cap, 2 MG PO Q8H PRN for DIARRHEA, CAP 02/24/19 Bimatoprost (LUMIGAN) 2.5 Ml Drops, 1 DROP OU HS, BOTTLE 01/29/16 Brinzolamide (AZOPT) 10 Ml Susp, 1 DROP OU BID 01/29/16 Brimonidine Tartrate (ALPHAGAN P) 5 Ml Drops, 1 DROP OU BID 01/29/16 JAMI PATRICK, Apr 14, 2020 12:22
--- NOTE | 2020-04-14 13:57 | Diagnostic Imaging Report ---
CT LUMBAR SPINE WO HISTORY: Back pain, right hip pain, bilateral leg weakness; history of colorectal cancer COMPARISON: CT of the abdomen/pelvis 02/24/2019 TECHNIQUE: Axial CT images of the lumbar spine were obtained without contrast. Coronal and sagittal reconstructions obtained from the axial data. One or more of the following dose reduction techniques were used: Automated exposure control, adjustment of the mA and/or kV according to patient size, and/or utilization of iterative reconstruction technique. DISCUSSION: Partially imaged lobular right presacral soft tissue mass abuts the right sacroiliac joint and invade the right sacral ala and right S1-S2 anterior sacral foramen. There is likely encasement of the local neurovascular structures (including the right iliac vessels and lumbosacral plexus), and right ureter. There is associated proximal right hydronephrosis and hydroureter. This mass is likely a metastatic lymph node conglomerate given patient's history of colorectal cancer. This mass measures up to 8.6 x 5.6 cm in transverse dimension and is larger when compared to CT of the abdomen/pelvis dated 02/24/2019. Mild adjacent lower right retroperitoneal lymphadenopathy is present. There are 5 nonrib-bearing lumbar vertebral bodies. Lumbar lordosis is preserved. There is no significant scoliosis or subluxation. Multiple soft tissue lytic osseous lesions are seen throughout the imaged axial skeleton, including the L1-L5 vertebral bodies, L3 spinous process, S1 vertebral body, S3 vertebral body, and medial right iliac bone. These lesions are likely osseous metastases. Lytic lesion in the posterior L5 vertebral body is associated with a mildly displaced pathologic compression fracture of the inferior endplate. There is no significant fracture retropulsion; however, there is tumor extension into the adjacent ventral epidural space at L5 resulting at least moderate canal stenosis. Moderate right L5-S1 foraminal stenosis is due to disc bulge, tumor extension, and facet arthrosis. Similar lytic lesion in the S3 vertebral body also abuts the epidural space. Otherwise, no definite additional acute fracture or compression deformity is seen. The paravertebral and paraspinal soft tissues are otherwise unremarkable. Underlying mild multilevel spondylosis is present. No significant degenerative canal stenosis is seen. Mild bilateral L4-L5 and mild to moderate L5-S1 foraminal stenoses are due to disc bulge and facet arthrosis. Partially imaged surgical clips in the gallbladder fossa. Mild aortoiliac calcified atherosclerosis is present. IMPRESSION: 1. Approximately 8.6 cm right presacral lymph node conglomerate, likely metastatic given history of colorectal cancer, has markedly increased in size. This mass invades the right sacral ala and right S1-S2 anterior sacral foramen. There is likely encasement of the local neurovascular structures and right ureter with right hydronephrosis and right hydroureter. 2. Multiple lytic osseous metastases throughout the imaged spine and pelvis. 3. L5 posterior vertebral metastasis is associated with mild pathologic compression fracture of the inferior endplate and local epidural tumor extension, which results in at least moderate canal stenosis. Moderate right L5-S1 foraminal stenosis is due to disc bulge, tumor extension, and facet arthrosis. Further evaluation with contrast-enhanced CT of the abdomen/pelvis is recommended if clinically feasible. Signed by: Dr. Manuel Fernandez M.D. on 04/14/2020 1:54 PM
[2020-04-14] MEDS ORDERED: ONDANSETRON HCL INJ 2MG/ML 2ML 2 MG/ML VIAL ONE (14:34)
[2020-04-14] MEDS ORDERED: PROPOFOL IV EMULSION 10 MG/ML 20 ML VIAL ONE (14:34)
[2020-04-14] MEDS ORDERED: LIDOCAINE HCL 2% LOCAL INJ 5 ML SDV VIAL INJ ONE (14:34)
[2020-04-14] MEDS ORDERED: SEVOFLURANE INHAL SOLN 250 ML PEN BTL ONE (14:34)
[2020-04-14] MEDS ORDERED: DEXAMETHASONE SOD PHOS INJ 4 MG/ML VIAL ONE (14:34)
[2020-04-14] MEDS ORDERED: ACETAMINOPHEN 1000 MG/100 ML IV ONE (14:34)
[2020-04-14 16:03] LABS: BASOPHILS # (AUTO) 0.1 (0.0-0.1); BASOPHILS % 0.5 % (0.0-1.0); EOSINOPHILS # (AUTO) 0.2 (0.0-0.4); EOSINOPHILS % 1.3 % (0.0-6.0); HEMATOCRIT 46.8 % (38.2-49.6); LYMPHOCYTES # (AUTO) 1.7 (1.0-3.2); LYMPHOCYTES % 13.5 % (18.0-39.1); MEAN CORPUSCULAR HEMOGLOBIN 29.2 pg (28-32); MEAN CORPUSCULAR HGB CONC 32.1 g/dL (31-35); MEAN CORPUSCULAR VOLUME 91.1 fL (81-99); MONOCYTES # (AUTO) 1.2 (0.2-0.8); MONOCYTES % 9.3 % (4.4-11.3); NEUTROPHILS # (AUTO) 9.2 (2.1-6.9); NEUTROPHILS % 73.9 % (38.7-80.0); PLATELET COUNT 285 x10e3/uL (140-360); RED BLOOD COUNT 5.14 x10e6/uL (4.3-5.7); RED CELL DISTRIBUTION WIDTH 13.6 % (11.7-14.4)
[2020-04-14 16:22] LABS: ALBUMIN 3.8 g/dL (3.5-5.0); ALBUMIN/GLOBULIN RATIO 0.8 (0.8-2.0); ANION GAP 17.1 mmol/L (8-16); CALCIUM 11.5 mg/dL (8.4-10.2); CREATININE, SERUM 1.52 mg/dL (0.72-1.25); POTASSIUM 4.1 mmol/L (3.5-5.1)
[2020-04-14] MEDS: ONDANSETRON HCL INJ 2MG/ML 2ML 2 MG/ML VIAL IV PRN (16:29)
[2020-04-14] MEDS: MORPHINE SULFATE INJ 4 MG/ML INJ 1ML IV PRN (16:29)
--- NOTE | 2020-04-14 16:57 | Diagnostic Imaging Report ---
EXAM: CHEST SINGLE (PORTABLE) DATE: 04/14/2020 4:38 PM INDICATION: Back pain COMPARISON: None FINDINGS: Left-sided subclavian chest port identified with distal tip terminating over the SVC. The trachea is midline. There are mildly increased left greater than right-sided bibasilar opacities suggestive of atelectasis. There is no evidence for large focal consolidation, pneumothorax, or significant pleural effusion. The cardiomediastinal silhouette the pulmonary vasculature are unremarkable. No acute osseous abnormality is identified. IMPRESSION: Bibasilar atelectasis. Otherwise, no acute cardiopulmonary process identified. Signed by: Dr. Garrett Peralta MD on 04/14/2020 4:54 PM
[2020-04-14] MEDS ORDERED: IOPAMIDOL 300MG/ML 50ML INFUS..BTL IV ONE (18:28)
--- NOTE | 2020-04-14 19:02 | History and Physical ---
REASON FOR ADMISSION: Back pain, right hydronephrosis, cancer of the colon, recurrent. HISTORY: This is a 70-year-old male, who states that he has back pain, right side, right lower part of the back, radiating to the buttock, the back of the leg all the way down the leg to the ankle and heel. The patient by history has had cancer of the colon, treated in 2016 by surgery and by Dr. Mcclure, and then with chemotherapy by Dr. Vanessa. The patient states that this year, he was told by Dr. Vanessa that he has some recurrence of his tumor and that there was nothing new that he could give him here and recommended the patient goes to [facility]. Unfortunately with the COV-19 pandemic, hospitals are being reducing their hospital visits by patients and apparently, he has been waiting to have a call back and has not. At this point, he came to the emergency room and on evaluation of his pain, a CT scan of the lumbar spine and sacrum was done, finding that the patient has hydronephrosis on the right side and that he has 6 to 8 cm mass on the right side of the pelvis by the sacrum. This mass has also caused obstruction to the ureter and therefore the patient has hydronephrosis. Hydronephrosis is minimal to moderate and I discussed that with the patient as well as the daughter on the phone. The patient also states that he had noticed that he has not been urinating the volume that he is used to. I believe that what he has is now he has more frequency because this tumor is quite large in the pelvis and is impinging on the back wall of the bladder. This is probably what is causing him to have the urgency that he has. The CT scan also shows that he probably has metastases now to the lumbar spine and that may be the reason why he is having his back pain. SOCIAL HISTORY: He does not smoke. Does not drink. He is . Not sexually active. Has had 3 children. He is very close to his daughter. PAST MEDICAL HISTORY: He has had a blood clot to the legs due to chemotherapy, for which he takes Xarelto. He has had a colectomy for cancer of the colon and chemotherapy. He has cancer of the colon, clots, and glaucoma. ALLERGIES: NO KNOWN DRUG ALLERGIES. MEDICATIONS: He takes Xarelto 20 mg in the evening, metoprolol 25 mg twice daily, Timolol Maleate morning and evening to both eyes, Alphagan 0.1% morning and evening to both eyes, Lumigan one drop at bedtime to both eyes. Further medications include Tylenol as needed, tramadol 50 mg once or twice a day as needed, methocarbamol 750 mg every 6 hours, although he only takes it once at night on Wednesdays only. Then he takes antacids and stool softeners, docusate sodium as needed. He also azelastine hydrochloride 0.1% twice a day. PHYSICAL EXAMINATION: GENERAL: Thin man with pain on his back. He is mentally stable, focus. LUNGS: Clear. ABDOMEN: Soft. The bladder is not palpable. He does not have any organomegaly on palpation. Prostate is approximately 30 g. No masses are probable transrectally. No hernias are found. Both testicles are descended. The penis is normal and uncircumcised. EXTREMITIES: Normal with no evidence of any edema. IMPRESSION: 1. Hydronephrosis right side due to a growing tumor of the pelvis. 2. Possible metastases to sacral and lumbar spine on CT. RECOMMENDATIONS: I had a talk with the patient and his daughter over the phone. I explained the circumstances. I told them that they did not have to have the stent put in. If he is going to [facility], they can put a stent there before the start of any other treatment. He has hydro. Of course, the daughter raised the question as to how fast they can get into [facility] and I do not know that. We were in the mid of this COVID-19 issue and operating rooms and hospitals have slowed down on the elective admissions patients, so they decided to go ahead and have the stent done since they do not know how long it will take for them to be in [facility]. We will proceed to do that. Alex Lehman MD RRG/MODL /[id number] cc: MD Joby Barrientos MD Jorge L Rodriguez, MD
[2020-04-14 20:30] VITALS: BP 156/86
--- NOTE | 2020-04-14 20:30 | NUR ---
PT ARRIVED BY STRETCHER TO ROOM 105. PT IS AAOX3, RR EVEN AND NON-LABORED, ON ROOM AIR. NO S/SX OF DISTRESS NOTED. PEREZ IN PLACE DRAINING PINK URINE. PT ASSISTED TO TRANSFER TO HOSPITAL BED. ORIENTED PT TO HOSPITAL ROOM, CALL LIGHT, PHONE, BED CONTROLS, LIGHTS, AND HOSPITAL POLICIES. LEFT PT LAYING SEMI FOWLERS IN BED, BED IN LOW LOCKED POSITION, SIDE RAILS UPX2, CALL LIGHT AND PHONE WITHIN REACH.
--- NOTE | 2020-04-14 20:37 | History and Physical ---
CHIEF COMPLAINT: 70-year-old gentleman started of with back pain. HISTORY OF PRESENT ILLNESS: This is Mr. Vipin Barkley with a history of colorectal cancer, until about 1 week prior to admission, the patient called me and started to complain of some back pain, which was relentless and the patient was advised to take an x-ray. X-ray was done, did not show any changes, but, however, the patient with a history of colorectal cancer, did want to rule out metastatic disease and also bone disease. The patient was sent to the ER for further evaluation, was found to have widespread metastases for colon cancer and the patient is admitted to the hospital for hydronephrosis and a consult with Dr. Lehman has been done for hydronephrosis secondary to metastases. PAST MEDICAL HISTORY: History of colon cancer, history of reflux esophagitis. SURGICAL HISTORY: Colectomy done by Dr. Ramesh Mcclure. The patient also had a cholecystectomy done, had a colostomy and takedown on a later date. FAMILY HISTORY: Noncontributory. SOCIAL HISTORY: No EtOH. No drug abuse. No history of smoking either. REVIEW OF SYSTEMS: Negative for chest pain. Positive for back pain. Positive for urinary incontinence and some fecal incontinence. No nausea, vomiting. Positive for diarrhea and constipation. No rectal bleeding. No hematochezia. No hematemesis. ALLERGIES: ALLERGIC TO PROMETHAZINE. PHYSICAL EXAMINATION: VITAL SIGNS: Temperature is 98.2, pulse of 87, respirations of 18, blood pressure is 153/74, pulse oximetry of 99%. HEENT: Normocephalic, atraumatic. Pupils are reactive. CVS: S1 and S2 normal. Regular rate and rhythm. ABDOMEN: Slightly distended. Tenderness in the left and right lower quadrants. EXTREMITIES: Lower extremities, positive for SLR. LABORATORY VALUES: White count is 12,000, hemoglobin 15, hematocrit 46.8. Chemistry shows sodium 137, potassium 4.8. Serology, coronavirus is pending. MICROBIOLOGY: None done. IMAGING: Lumbar spine CT shows approximately 8.6 cm right presacral lymph node conglomerate, likely metastatic given the history of colorectal cancer. The mass invades right sacral ala and the right S1-S2 anterior sacral foramina, likely encasement of the local neurovascular structure and right ureter with right hydronephrosis and right hydroureter. Multiple lytic osseous metastases with spine and pelvis, L5 posterior vertebral masses, mild pathological compression fracture, foraminal stenosis L5-S1. ASSESSMENT: Mr. Vipin Barkley with colorectal cancer with metastases to the bones and also adjacent organs including the ureter. The patient is being taken to surgery by Dr. Lehman for hydronephrosis. Further recommendations per the clinical course. A consult has been done with Dr. Vanessa too. The patient will decide and further recommendation from Dr. Vanessa. We will continue on the patient, pain control and also for symptom control. MD THOMAS Aguirre/MODL /[id number]
--- NOTE | 2020-04-14 20:53 | Operative Report ---
DATE OF PROCEDURE: 04/14/2020 SURGEON: Alex Lehman MD PREOPERATIVE DIAGNOSES: Right hydronephrosis, pelvic mass with severe external pressure on ureter. POSTOPERATIVE DIAGNOSES: Right hydronephrosis, pelvic mass with severe external pressure on ureter. OPERATIONS PERFORMED: Cystoscopy and retrograde pyelogram. Postoperatively also the patient in urinary retention. FINDINGS: The patient has a normal urethra. . The left ureter is clear efflux, right no efflux. On retrograde, the left ureter is normal, the right is completely 100% obstructed and irregular due to any regular extrinsic pressure from a pelvic mass. ANESTHESIOLOGIST: Dr. Iqbal. ANESTHESIA: General. PROCEDURE IN DETAIL: With the patient under satisfactory general anesthesia, the patient is placed in supine position on the operating table. Legs were placed on stirrups. Genitalia was prepped with pHisoHex solution and draped in the usual manner. Cystoscopy was performed. Findings; normal urethra, prostate is hard, particularly fixed. The right vishal-trigone is elevated. The left vishal-trigone is normal. Clear efflux seen on the left. No efflux seen on the right. Retrograde pyelogram was done with a #8 cone-tip ureteral catheter, contrast media was injected retrograde, first on the left side all the way up to the kidney, normal on the right. The ureter is needle thin, irregular. The patient has hydroureter above that, consistent with an extrinsic mass probably about 5 cm long. Attempts of passing a Glidewire failed, placing the Glidewire stiffer on an open-ended catheter also fail. At this point, the procedure was terminated. The patient is in urinary retention and a Felton catheter was placed in and left indwelling. The patient was then taken to recovery room in satisfactory condition. Alex Lehman MD RRG/MODL /[id number]
[2020-04-14 21:00] VITALS: BP 156/86
[2020-04-14] MEDS ORDERED: METHOCARBAMOL750 MG PO (21:54)
[2020-04-14] MEDS ORDERED: DOCUSATE SODIU100 MG PO (21:54)
[2020-04-14] MEDS ORDERED: SENNA LAX8.6 MG PO (21:54)
[2020-04-14] MEDS ORDERED: TYLENOL325 M2 PO (21:54)
[2020-04-14] MEDS ORDERED: DORZOLAMIDE-TIM10 ML OU (21:54)
[2020-04-14] MEDS ORDERED: ULTRAM 50MG50 MG PO (21:54)
[2020-04-14] MEDS ORDERED: AZELASTINE HCL 137 MCG NASAL SPRAY NS PRN (22:00)
[2020-04-14] MEDS ORDERED: METHOCARBAMOL 750 MG TAB PO PRN (22:00)
[2020-04-14] MEDS: BRIMONIDINE TARTRATE 0.15% OPTH DRPS 10ML BTL OP SCH (22:00)
[2020-04-14] MEDS ORDERED: LOPERAMIDE HCL 2 MG CAP PO PRN (22:00)
[2020-04-14] MEDS ORDERED: SENNOSIDES 8.6 MG TAB PO PRN (22:00)
[2020-04-14] MEDS: DORZOLAMIDE/TIMOLOL (OPTH SOL) 10 ML DRPETTE OP SCH (22:00)
[2020-04-14] MEDS ORDERED: NON-FORMULARY MEDICATION (Acetaminophen (Tylenol) 650 MG) PO PRN (22:00)
[2020-04-14] MEDS ORDERED: MAGNESIUM HYDROXIDE 30 ML UDC PO PRN (22:00)
[2020-04-14] MEDS: BIMATOPROST(OPTH) 2.5 ML BOTTLE OP SCH (22:00)
[2020-04-14] MEDS ORDERED: DOCUSATE SODIUM 100 MG CAP PO PRN (22:00)
[2020-04-14] MEDS ORDERED: TRAMADOL HCL 50 MG TAB PO PRN (22:00)
--- NOTE | 2020-04-14 22:13 | Diagnostic Imaging Report ---
EXAMINATION: Retrograde pyelogram COMPARISON: CT abdomen and pelvis 02/24/2019 INDICATION: Right ureteral stenosis FINDINGS: Cannulization and retrograde injection of bilateral ureters with contrast. Normal course and caliber of the visualized left ureter. No strictures or filling defects. No definite hydronephrosis. Long segment marked luminal narrowing of the distal right ureter throughout multiple images, with prestenotic dilation of the mid right ureter. IMPRESSION: 1. Lung segment marked luminal narrowing/stenosis of the distal right ureter with prestenotic dilation of the mid to distal right ureter. Signed by: Dr. Georges Garcia M.D. on 04/14/2020 10:09 PM
[2020-04-14 22:20] LABS: CLARITY,URINE CLOUDY (CLEAR); COLOR,URINE RED (YELLOW); KETONES,URINE 2+ (NEGATIVE); LEUKOCYTE ESTERASE ,URINE NEGATIVE (NEGATIVE); NITRITE,URINE NEGATIVE (NEGATIVE); PROTEIN,URINE DIPSTICK 1+ (NEGATIVE)
[2020-04-14 22:21] LABS: BILIRUBIN,URINE SMALL (NEGATIVE); URINE UROBILINOGEN 0.2 mg/dL (0.2 - 1)
[2020-04-14 22:29] LABS: BACTERIA,URINE FEW /HPF; EPITHELIAL CELLS,URINE FEW /LPF; RBC,URINE >50 /HPF (0-5)
[2020-04-14] MEDS ORDERED: CALCIUM CARBONATE 500 MG CHEWABLE TABS PO PRN (22:30)
[2020-04-14] MEDS ORDERED: ONDANSETRON HCL 4 MG ORAL DISINTEGRATING TAB PO PRN (22:30)
[2020-04-15] VITALS (8 sets, daily range): BP systolic 125–158; BP diastolic 79–97
[2020-04-15] MEDS: ONDANSETRON HCL INJ 2MG/ML 2ML 2 MG/ML VIAL IV PRN ×2 (05:05→21:28)
[2020-04-15] MEDS: MORPHINE SULFATE INJ 4 MG/ML INJ 1ML IV PRN ×3 (05:05→21:28)
[2020-04-15 05:46] LABS: BASOPHILS % 0.2 % (0.0-1.0); HEMATOCRIT 42.4 % (38.2-49.6); HEMOGLOBIN 13.5 g/dL (14.0-18.0); LYMPHOCYTES # (AUTO) 0.8 (1.0-3.2); LYMPHOCYTES % 8.7 % (18.0-39.1); MEAN CORPUSCULAR HEMOGLOBIN 28.8 pg (28-32); MEAN CORPUSCULAR HGB CONC 31.8 g/dL (31-35); MEAN CORPUSCULAR VOLUME 90.4 fL (81-99); MONOCYTES # (AUTO) 0.5 (0.2-0.8); MONOCYTES % 5.2 % (4.4-11.3); NEUTROPHILS # (AUTO) 7.8 (2.1-6.9); NEUTROPHILS % 84.6 % (38.7-80.0); PLATELET COUNT 250 x10e3/uL (140-360); RED BLOOD COUNT 4.69 x10e6/uL (4.3-5.7); RED CELL DISTRIBUTION WIDTH 13.4 % (11.7-14.4)
[2020-04-15 06:02] LABS: ALBUMIN 3.1 g/dL (3.5-5.0); ALBUMIN/GLOBULIN RATIO 0.8 (0.8-2.0); ANION GAP 14.4 mmol/L (8-16); CALCIUM 10.2 mg/dL (8.4-10.2); CREATININE, SERUM 1.47 mg/dL (0.72-1.25); POTASSIUM 4.4 mmol/L (3.5-5.1)
--- NOTE | 2020-04-15 06:11 | NUR ---
CONSULTATION CALLED TO [facility], WAITING FOR CALLBACK.
[2020-04-15] MEDS: METOPROLOL TARTRATE 25 MG TAB PO SCH ×2 (08:16→16:22)
[2020-04-15] MEDS: HYDROCODONE/APAP 10MG-325MG TAB PO PRN ×2 (08:16→16:23)
[2020-04-15] MEDS: BRIMONIDINE TARTRATE 0.15% OPTH DRPS 10ML BTL OP SCH ×2 (09:00→16:27)
--- NOTE | 2020-04-15 11:00 | NUR ---
pt refused alphagan p bromonidine eye drops. pt states the eye drops names are incorrect. called pharmacist to inform her of pt concern. pharmacist came to pt bedside to explain eye drops
[2020-04-15] MEDS: DORZOLAMIDE/TIMOLOL (OPTH SOL) 10 ML DRPETTE OP SCH ×2 (12:41→16:27)
--- NOTE | 2020-04-15 15:10 | NUR ---
spoke with dr kiser. states radiology order is not stat. pt can get test done next tues.
[2020-04-15] MEDS: RIVAROXABAN 20 MG TABLET PO SCH (16:22)
--- NOTE | 2020-04-15 16:45 | NUR ---
pt refused xaralto. explained to pt dr kiser states it is ok to cont due to procedure being next tu, pt still refused out of concern procedure may change to earlier day.
--- NOTE | 2020-04-15 17:20 | NUR ---
talked to dr kiser via phone to notify him pt refused xaralto and eyedrops. spoke to pt on the phone.
--- NOTE | 2020-04-15 19:30 | NUR ---
RECEIVED REPORT FROM PREVIOUS NURSE. CALL LIGHT WITHIN REACH. PATIENT IN BED. ROUNDING PERFORMED.
[2020-04-15] MEDS: BIMATOPROST(OPTH) 2.5 ML BOTTLE OP SCH (20:33)
[2020-04-16] VITALS (9 sets, daily range): BP systolic 126–149; BP diastolic 62–94
[2020-04-16] MEDS: ONDANSETRON HCL INJ 2MG/ML 2ML 2 MG/ML VIAL IV PRN ×4 (03:58→20:25)
[2020-04-16] MEDS: MORPHINE SULFATE INJ 4 MG/ML INJ 1ML IV PRN ×4 (04:00→20:25)
--- NOTE | 2020-04-16 04:15 | NUR ---
PEREZ CARE PERFORMED
--- NOTE | 2020-04-16 07:10 | NUR ---
GAVE REPORT TO ONCOMING NURSE. CALL LIGHT WITHIN REACH. PATIENT IN BED. HOURLY ROUNDING PERFORMED.
--- NOTE | 2020-04-16 07:58 | Progress Note ---
DATE: SUBJECTIVE: The patient states he is feeling fairly well. No new complaints. OBJECTIVE: VITAL SIGNS: Temperature 97.8, pulse 81, blood pressure 138/91, sats 98%. GENERAL: He is in no apparent distress, lying in bed. CARDIOVASCULAR: Regular rate and rhythm. LUNGS: Decreased breath sounds. ABDOMEN: Good bowel sounds. Soft, nontender. EXTREMITIES: No clubbing or cyanosis. NEUROLOGIC: Nonfocal. ASSESSMENT AND PLAN: 1. Hydroureter. Continue with current care per Dr. Lehman. 2. Stage IV colon cancer. Continue care per Dr. Vanessa. 3. Hypertension. Continue with his medications. 4. Anemia. Continue to monitor. 5. Chronic kidney disease stage 3. Continue to monitor p.r.n. Please see hospital chart for full details. MD SAGAR Worley/CATIA /[id number]
--- NOTE | 2020-04-16 08:00 | NUR ---
PT IN BED, C/O NAUSEA AND PAIN IN LEGS, PEREZ DRAINING CLEAR YELLOW URINE, NO DISTRESS NOTED, VS WNL, CALL LIGHT IN REACH
[2020-04-16] MEDS: DORZOLAMIDE/TIMOLOL (OPTH SOL) 10 ML DRPETTE OP SCH ×2 (09:00→17:00)
[2020-04-16] MEDS: METOPROLOL TARTRATE 25 MG TAB PO SCH ×2 (09:00→17:00)
[2020-04-16] MEDS: BRIMONIDINE TARTRATE 0.15% OPTH DRPS 10ML BTL OP SCH ×2 (09:00→17:00)
--- NOTE | 2020-04-16 15:06 | Progress Note ---
DATE: 04/16/2020 SUBJECTIVE: The patient today is afebrile. Urine is clear. He was having a bowel movement at the time that I came in. He complains of increased pain now on both his legs on just right one. He said the pain is quite severe and when given medicine it does not really get rid of the pain for a long time. It just appears that it is just a short time and the pain is back. I discussed with him removing the Felton catheter just to make sure whether he is in retention or not and we will check his postvoid residual. I have spoken with the nurses regarding that and put the order in myself and to call me with a postvoid residual determining tomorrow what is for him. Dr. Vanessa talked to him yesterday and will return tomorrow. I guess after he goes over his records and see what else can be done for the patient here. He has been having progression of his stage IV cancer of the colon, now he has worsened metastases of his lumbar spine. MD MARCELLE BellG/MODL /[id number]
--- NOTE | 2020-04-16 15:45 | NUR ---
PEREZ CATHETER D/CD. WILL WAIT FOR NEED OF URINATION FOR BLADDER SCAN.
[2020-04-16] MEDS: RIVAROXABAN 20 MG TABLET PO SCH (17:00)
--- NOTE | 2020-04-16 18:40 | NUR ---
REPORT GIVEN TO ON COMING NURSE, PT IS DTV, VS WNL, NO DISTRESS NOTED, CALL LIGHT IN REACH
--- NOTE | 2020-04-16 19:00 | NUR ---
RECEIVED REPORT FROM PREVIOUS NURSE. CALL LIGHT WITHIN REACH. PATIENT IN BED. ROUNDING PERFORMED.
[2020-04-16] MEDS: BIMATOPROST(OPTH) 2.5 ML BOTTLE OP SCH (20:25)
[2020-04-16] MEDS: HYDROCODONE/APAP 10MG-325MG TAB PO PRN (22:17)
[2020-04-17] MEDS: MORPHINE SULFATE INJ 4 MG/ML INJ 1ML IV PRN ×2 (04:18→09:17)
[2020-04-17] MEDS: ONDANSETRON HCL INJ 2MG/ML 2ML 2 MG/ML VIAL IV PRN ×2 (04:18→09:17)
[2020-04-17 04:49] VITALS: BP 123/85
--- NOTE | 2020-04-17 06:00 | NUR ---
CALLED DR. ELLIS BECAUSE THE PATIENT HAS NOT VOID DURING THE NIGHT. BLADDER SCAN WAS DONE AND PATIENT IS RETAINING 44O CC. DR ELLIS SAID TO PLACE A PEREZ
--- NOTE | 2020-04-17 06:35 | NUR ---
PEREZ WAS PLACED IN PATIENT. SUCCESSFUL ON THE FIRST TRY. PATIENT WAS TOLD WHY HE HAD TO HAVE THE PEREZ BECAUSE HE WAS RETAINING 450 CC OF URINE.
--- NOTE | 2020-04-17 07:00 | NUR ---
RECEIVED PATIENT RESTING IN BED NO S/S OF DISTRESS. BED LOW, WHEELS LOCKED, SIDE RAILS X2. CALL LIGHT IN REACH WILL CONTINUE TO MONITOR PATIENT.
--- NOTE | 2020-04-17 07:12 | Progress Note ---
DATE: SUBJECTIVE: The patient came in with acute hydronephrosis. The patient is status post stent placement by Dr. Lehman. Felton was removed. Plan to be reinserted. Currently does have increased residual volumes. OBJECTIVE: VITAL SIGNS: Temperature is 98.5, pulse of 99, blood pressure is 123/85, pulse oximetry of 96% on room air. HEENT: Normocephalic and atraumatic. Pupils are reactive. CVS: S1 and S2 are normal. Regular rate and rhythm. ABDOMEN: Distended and tender. EXTREMITIES: No clubbing, no cyanosis, and/or no edema. Pain in the lumbar spine. LABORATORY VALUES: White count is 9.23, hemoglobin and hematocrit of 13.7 and 42.4. Chemistry shows sodium 134, BUN of 24, creatinine of 1.47. Serology, no coronavirus detected. ASSESSMENT AND PLAN: Hydronephrosis secondary to tumor load on tumor mass. The patient continues to have a postvoid residue. We will continue to monitor his urine output. Creatinine functions will be repeated today. The patient also has been consulted with Dr. Vanessa, who will determine the progression of further treatment requirement. Currently, Mr. Vipin Benavidesn with: 1. History of colorectal cancer with possible metastasis from the colorectal cancer. 2. Hydroureteronephrosis secondary to mass, obstructive lesions. The patient is status post stent by Dr. Lehman. Continue to monitor the patient. Pain control has been achieved with 4 mg of morphine every 6 hours and we will continue the same. Further recommendation per clinical course and also depending on Dr. Vanessa's recommendations. MD THOMAS Aguirre/MODL /[id number]
--- NOTE | 2020-04-17 07:15 | NUR ---
GAVE REPORT TO ONCOMING NURSE. CALL LIGHT WITHIN REACH. PATIENT IN BED. HOURLY ROUNDING PERFORMED
[2020-04-17 07:35] VITALS: BP 134/84
[2020-04-17] MEDS: METOPROLOL TARTRATE 25 MG TAB PO SCH ×2 (08:42→17:28)
[2020-04-17] MEDS: BRIMONIDINE TARTRATE 0.15% OPTH DRPS 10ML BTL OP SCH ×2 (08:42→17:28)
[2020-04-17] MEDS: DORZOLAMIDE/TIMOLOL (OPTH SOL) 10 ML DRPETTE OP SCH ×2 (08:42→17:28)
[2020-04-17 08:57] VITALS: BP 134/84
--- NOTE | 2020-04-17 09:13 | Progress Note ---
DATE: 04/17/2020 Today, the patient failed his voiding trial, unable to urinate, was in retention and a Felton catheter was placed in. Urine is clear today. Again, discussed with the patient what to do about his problem. Obviously, the urological extent of involvement depends on what options the patient has for his stage IV colon cancer progression. Discussed with the patient this morning that difficult to say whether this is just a prostatic obstruction or whether this is a nerve-related obstruction. I told him that if something can be done for his metastatic disease of the lumbar spine to relieve the pain, the compression that may be we could potentially operate his prostate, so he can get rid of his Felton, but if this is a nerve condition that he would not be able to urinate. I will await the patient's decision after he speaks with Dr. Meek today. MD SHE Bell/MODL /[id number]
[2020-04-17 11:05] VITALS: BP 136/84
--- NOTE | 2020-04-17 11:12 | NUR ---
PATIENT RESTING IN BED COMFORTABLY. PEREZ DRAINING CLEAR YELLOW URINE. NO PAIN OR S/S OF DISTRESS AT THIS TIME. CALL LIGHT IN REACH WILL CONTINUE TO MONITOR PATIENT.
[2020-04-17] MEDS: HYDROCODONE/APAP 10MG-325MG TAB PO PRN (14:57)
--- NOTE | 2020-04-17 15:06 | NUR ---
SPOKE WITH DR. ROWLEY. NO FURTHER PLANS FOR THIS HOSPITAL ADMISSION. PATIENT NEEDS TO FOLLOW UP WITH HIM TOMORROW IF DISCHARGED TODAY.
[2020-04-17 15:50] VITALS: BP 140/87
--- NOTE | 2020-04-17 16:08 | NUR ---
SPOKE WITH DR. ELLIS. PATIENT TO BE DISCHARGED WITH PEREZ CATHETER AND FOLLOW UP IN ONE MONTH.
[2020-04-17] MEDS: RIVAROXABAN 20 MG TABLET PO SCH (17:28)
--- NOTE | 2020-04-17 17:45 | NUR ---
DISCHARGE ORDER RECEIVED FROM DR. LAU. PATIENT TO FOLLOW UP IN HIS OFFICE IN ONE WEEK.
[2020-04-17] MEDS ORDERED: TYLENOL #4 PO (17:55)
--- NOTE | 2020-04-17 18:47 | NUR ---
REMOVED PATIENTS IV. CATHETER TIP INTACT AND PRESSURE DRESSING APPLIED.
[2020-04-17 20:00] VITALS: BP 140/87
--- NOTE | 2020-04-17 20:25 | NUR ---
D/C HOME WITH FAMILY.PEREZ DRAINING CLEAR YELLOW URINE. PT DENIES PAIN. VS STABLE.RN ASSIST PT TO W/C .
== END 2020-04-17 20:28 | disposition home or self-care (01) | DRG 543 ==
LOC: ER 12:30 → ERHOLD 14:35 → MED/SURG 19:53
PROVIDERS: ADMIT Family Medicine; ATTEND Family Medicine
PROC: BT1D1ZZ Fluoroscopy of Right Kidney, Ureter and Bladder using Low Osmolar Contrast (ICD-10-PCS; principal; 2020-04-14 19:03)
DX: C79.51 Secondary malignant neoplasm of bone (principal); C79.19 Secondary malignant neoplasm of other urinary organs; C19 Malignant neoplasm of rectosigmoid junction; N13.30 Unspecified hydronephrosis; C78.7 Secondary malignant neoplasm of liver and intrahepatic bile duct; D64.9 Anemia, unspecified; I12.9 Hypertensive chronic kidney disease with stage 1 through stage 4 chronic kidney disease, or unspecified chronic kidney disease; N18.3 Chronic kidney disease, stage 3 (moderate); R33.9 Retention of urine, unspecified
CPT/HCPCS: 36415; 71045; 72131; 74420; 80053; 81001; 85025; 99284; C1758; J1100; J2001; J2270; J2405; Q0162; U0002